=== PATIENT | female | born 1960 | race Caucasian/White ===

== ENCOUNTER → 2017-06-06 | Outpatient (CLI) | payer OTHER ==
--- NOTE | 2017-06-06 09:49 | P.HPOB ---
History of Present Illness H&P Date: 06/06/17 Chief Complaint: The patient is here for her routine gynecologic exam and mammogram. This is a 57-year-old G2 to P1011 within LMP of 2005. Patient states she continues to have hot flashes. They seem to have gotten worse over the last 6 months. She states she notices them more during the day compared to the past. Her hot flashes used to be mostly at night. She denies any postmenopausal bleeding and denies any other gynecologic problems. Review of Systems Her weight has been stable. She denies respiratory, cardiac or G.I. problems. Past Medical History Past Medical History: Hypertension Additional Past Medical History / Comment(s): kidney stones. She also has hiatal hernia, overactive bladder, osteopenia and history of a aortic aneurysm status post graft repair. History of Any Multi-Drug Resistant Organisms: None Reported Additional Past Surgical History / Comment(s): aaa repair 01/29/14, kidney stone surgery, colonoscopy in 2014. Past Psychological History: No Psychological Hx Reported Smoking Status: Current every day smoker (She admits to smoking about a half a pack of cigarettes per day.) Past Alcohol Use History: None Reported, Rare Past Drug Use History: None Reported - Past Family History Father Family Medical History: Diabetes Mellitus Additional Family Medical History / Comment(s): Father had heart disease and diabetes. Her sister also had diabetes. Mother had an aortic aneurysm and a cousin had a brain aneurysm. Medications and Allergies Home Medications and Allergies Comment(s): The patient states her current medications on 06/06/2017 are atenolol 50 mg daily and omeprazole 40 mg daily. Home Medications Medication Instructions Recorded Confirmed Type Atenolol [Tenormin] 1 tab PO HS 04/16/14 04/16/14 History Famotidine [Pepcid] 40 mg PO HS #10 tab 04/16/14 Rx HYDROcodone/APAP 7.5-325MG [[place] 1 tab PO BID PRN 04/16/14 04/16/14 History 7.5-325] Ondansetron HCl [Zofran] 4 mg PO Q8HR #15 tab 04/16/14 Rx Zolpidem [Ambien] 1 tab PO HS PRN 04/16/14 04/16/14 History Allergies Allergy/AdvReac Type Severity Reaction Status Date / Time amoxicillin [Amoxicillin] Allergy Unknown Verified 04/16/14 10:02 latex Allergy Itching Verified 04/16/14 10:02 Exam - Vital Signs Vital signs: Blood pressure 162/92 height 5'3" weight 180 pounds hundred 97.6 pulse 65. This is a well-developed well-nourished white female who is alert and oriented times 3 in no acute distress. HEENT: Within normal limits. NECK: Supple without mass or thyromegaly. CHEST AND LUNGS: Clear to auscultation. HEART: Regular rate and rhythm. BREASTS: Are without mass or discharge. AXILLARY EXAM: Negative for adenopathy. BACK: Negative for CVA tenderness. ABDOMEN: Soft, nontender, without palpable masses. PELVIC EXAM: Normal external genitalia with mild atrophy. Cervix and vagina appear normal with mild atrophy. There is no unusual discharge. There is no evidence of prolapse. The uterus is midposition, nongravid size and nontender. There are no palpable adnexal masses or tenderness. RECTAL EXAM: recto vaginal exam is negative for mass or tenderness and is negative for occult blood. EXTREMITIES: Nontender. IMPRESSION: 1. 57-year-old menopausal female with normal gynecologic exam. 2. History of chronic hypertension with elevated blood pressure today. 3. History of osteopenia. PLAN: 1. Pap smear was deferred since she had a normal one last year. 2. Self breast examination was discussed. 3. Mammogram will be done today. 4. We've discussed her blood pressure elevation. I have recommended that she follow-up with Dr. Shay as soon as possible. I've also recommended that she do home blood pressure checks since she does have a blood pressure cuff. I have stressed the importance of having good blood pressure control especially because of her history of the aortic aneurysm. She states she will follow-up with Dr. Shay. 5. Osteoporosis prevention was discussed. Will plan on repeating bone density testing next year. 6. She will return in one year.
--- NOTE | 2017-06-07 09:19 | MM ---
Reason for exam: screening (asymptomatic). Last mammogram was performed 1 year and 1 month ago. History: Patient is postmenopausal and had first child at age 37. Taking estrogen for 1 year beginning at age 44. Taking progesterone for 1 year beginning at age 44. Physical Findings: A clinical breast exam by your physician is recommended on an annual basis and results should be correlated with mammographic findings. MG Screening Mammo w CAD Bilateral CC and MLO view(s) were taken. Prior study comparison: May 10, 2016, bilateral MG screening mammo w CAD. July 10, 2013, [facility] DIGITAL BILATERAL MAMMOGRAM w/CAD. The breast tissue is heterogeneously dense. This may lower the sensitivity of mammography. No suspicious abnormality. No significant changes when compared with prior studies. ASSESSMENT: Negative, BI-RAD 1 RECOMMENDATION: Routine screening mammogram of both breasts in 1 year.
== END | disposition home or self-care (01) ==
LOC: WWCWWP 08:33
PROVIDERS: ATTEND Obstetrics & Gynecology
DX: Z12.31 Encounter for screening mammogram for malignant neoplasm of breast (principal)

== ENCOUNTER → 2019-02-18 | Outpatient (CLI) | payer OTHER ==
--- NOTE | 2019-02-18 08:31 | MR ---
EXAMINATION TYPE: MR angio head wo con DATE OF EXAM: 02/18/2019 COMPARISON: Outside brain MRI March 20, 2018. HISTORY: Previous abnormal MRI, face spasm TECHNIQUE: Time of flight images focusing on the [place] of [place] were performed without contrast.. 2-D and 3-D postprocessing imaging is performed. FINDINGS: Slight tortuous course to distal right vertebral artery is seen. There is codominant verteb ral basilar system. Vertebral arteries are patent to basilar junction. There is small caliber but pat ent right posterior me indicating artery. There is patent left posterior commuting artery. There is n o significant focal stenosis or aneurysmal change in posterior circulation. Images of the anterior circulation show tortuous course to distal internal carotid arteries bilateral ly. There is no significant focal stenosis or aneurysmal change in the anterior circulation. There is small caliber but patent anterior communicating artery identified. IMPRESSION: No aneurysmal change at the level of the [place].
--- NOTE | 2019-02-18 08:46 | CTL ---
EXAMINATION TYPE: CT Low Dose Lung DATE OF EXAM ORDERED: 02/18/2019 HISTORY: Long-term tobacco use. Lung cancer screening CT DLP: [address] CTDI: 2.34 mGy Automated exposure control for dose reduction was used. SCREENING VISIT: Second study COMPARISON: Low-dose lung screening CT May 24, 2016 TECHNIQUE: Low dose computed tomography scan was performed through the chest at 1 mm thick sections a nd reconstructed images in the coronal plane at [address] DIAGNOSTIC QUALITY: Limited, but interpretable FINDINGS: LUNG NODULES: Present, detailed below: Current exam shows improved nodular detection due to post process MIP imaging. A stable calcified 3 mm nodule or granuloma right midlung anteriorly axial image 174. Immediately inf erior and lateral to this there is stable 2 mm probable calcified nodule or granuloma axial image 177 . There is 3 x 2 mm lateral right upper lobe nodule axial image 80 likely stable from prior. There is 4 x 3 mm lateral left upper lobe nodule axial image 72 felt stable from prior study axial im age 69. LUNGS: COPD: Severity: Mild to moderate Fibrosis: Severity: None Lymph nodes: No new greater than 1 cm Other findings: None BILATERAL PLEURAL SPACE: Effusion: None Calcification: None Thickening: None Pneumothorax: None HEART: Heart Size: Normal Coronary calcification: Mild to moderate three-vessel coronary artery calcification redemonstrated Pericardial effusion: None OTHER FINDINGS: Upper abdomen: Small hiatal hernia is redemonstrated. Bony thorax: None. Supraclavicular region: None Other: None IMPRESSION: Scattered small nodules are stable. FOLLOW UP CT CHEST RECOMMENDATION: Annual low-dose lung screening CT CT LUNG RAD: Lung-Rad 2 Benign Appearance or Behavior
--- NOTE | 2019-02-18 10:09 | MR ---
EXAMINATION TYPE: MR brain and iac wo/w con DATE OF EXAM: 02/18/2019 COMPARISON: Prior brain MRI 03/20/2018 HISTORY: Previous abnormal MRI, face spasm TECHNIQUE: Multiplanar, multisequence images of the brain and brainstem is performed without and with IV contras t, utilizing 8 mL intravenous Gadavist . Small aphyg-wv-ooxm high-resolution images obtained through the internal auditory canals. FINDINGS: Diffusion weighted images demonstrate no evidence of a recent infarct or other diffusion ab normality. There is no extra-axial fluid collection or significant interval change white matter sign al abnormality, diffuse scattered hyperintensities are present in the juxtacortical, subcortical, per icallosal and periventricular white matter similar to prior exam as well as in the krys to the right midline, there are greater than 50 lesions, essentially stable accounting for differences in techniqu e. The ventricular system and cisternal spaces are normal in size and appearance. The brain volume is age appropriate. Midline structures demonstrate normal morphology. The craniocervical junction appears within normal limits. Post contrast images demonstrate no abnormal enhancement. Internal auditory canals are symme tric and unremarkable The dural venous sinuses appear patent. The visualized sinuses are clear and th e globes are intact. IMPRESSION: Stable white matter demyelination. No abnormal enhancement.
== END | disposition home or self-care (01) ==
LOC: RADMRIMAIN 07:04
PROVIDERS: ATTEND Psychiatry & Neurology Neurology
DX: Z12.2 Encounter for screening for malignant neoplasm of respiratory organs (principal); R91.8 Other nonspecific abnormal finding of lung field; G37.9 Demyelinating disease of central nervous system, unspecified; I67.1 Cerebral aneurysm, nonruptured
CPT/HCPCS: 70544; 70553; G0297; A9585

== ENCOUNTER → 2019-04-01 | Outpatient (CLI) | payer OTHER ==
[2019-04-01 08:02] VITALS: BP 173/84; PULSE 72; RESP 16; TEMP 97.8; BMI 32.5
--- NOTE | 2019-04-01 09:46 | WWHP ---
[facility] - HISTORY AND PHYSICAL DATE OF SERVICE: 04/01/2019 CHIEF COMPLAINT: The patient is here for her routine gynecologic exam and mammogram. HPI: This is a 59-year-old, G2, P-1-0-1-1 with an LMP of 2006. The patient is without gynecologic complaints and denies any postmenopausal bleeding. PAST MEDICAL HISTORY: Chronic hypertension, kidney stones, hiatal hernia, overactive bladder, osteopenia, and history of aortic aneurysm, status post graft repair. MEDICATIONS: Include an antihypertensive, cholesterol medication, medication for gastric reflux. Please see medications listed in [employer] for details and doses. ALLERGIES: To AMOXICILLIN, which caused hives. PAST SURGICAL HISTORY: Aortic aneurysm graft repair in 2013, lithotripsy for kidney stones 2013 and colonoscopy 2014. 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 SOCIAL HISTORY: She smokes approximately 1/2 a pack of cigarettes per day and has about 3 alcohol- containing drinks per month. She denies drug use. She has been since 1995. FAMILY HISTORY: Father had heart disease and diabetes. Sister also has diabetes. Mother had an aortic aneurysm and a cousin had a brain aneurysm. REVIEW OF SYSTEMS: She has gained 4 pounds over the past 2 years. She denies respiratory, cardiac or GI problems. PHYSICAL EXAM: Blood pressure 173/84, height 5 feet 3 inches, weight 184 pounds, BMI 33. Temperature 97.8, pulse 72, pulse oximeter 94%. This is a well-developed, well-nourished, white female, who is alert and oriented x3, in no acute distress. HEENT: Within normal limits. NECK: Supple without mass or thyromegaly. CHEST AND LUNGS: Clear to auscultation. HEART: Regular rate and rhythm. Breasts are without mass or discharge. AXILLARY: Exam is negative for adenopathy. BACK: Negative for CVA tenderness. ABDOMEN: Soft, nontender, without palpable masses. PELVIC: Exam external genitalia reveals mild atrophy without lesions. Cervix and vagina reveals mild atrophy without lesions. There is no evidence of prolapse. The uterus is mid position, nongravid size and nontender. There are no palpable adnexal masses or tenderness. Rectovaginal exam is negative for mass or tenderness and is negative for occult blood. EXTREMITIES: Nontender. IMPRESSION: 1. A 59-year-old menopausal female with normal gynecologic exam. 2. History of osteopenia. 3. Elevated blood pressure with history of chronic hypertension. PLAN: 1. Pap smear was performed. 2. Self breast awareness was discussed with the patient. 3. Screening mammogram will be done today. 4. Osteoporosis prevention was discussed. Bone density testing will be done today. 5. We have discussed her elevated blood pressure. I have recommended that she check her own blood pressures at home. She will follow up with Dr. Shay for elevated blood pressures. 6. She is to return in one year for her annual well-woman exam. MMODL / IJN: [id number] /
--- NOTE | 2019-04-01 18:43 | BD ---
EXAMINATION TYPE: Axial Bone Density DATE OF EXAM: 04/01/2019 COMPARISON: NONE CLINICAL HISTORY: 59-year-old female postmenopausal screening without HRT Height: 63 Weight: 182.1 FRAX RISK QUESTIONS: Alcohol (3 or more units per day): no Family History (Parent hip fracture): yes mother Glucocorticoids (More than 3mos): no (Ex: prednisone, prednisolone, methylprednisolone, dexamethasone, and hydrocortisone). History of Fracture in Adulthood: no Secondary Osteoporosis: 1. Type 1 Diabetes: no 2. Hyperthyroidism: no 3. Menopause before 45: no 4. Malnutrition: no 5. Chronic liver disease: no Rheumatoid Arthritis: no Current Tobacco Use: yes RISK FACTORS HISTORY OF: Family History of Osteoporosis: yes Active: yes Diet low in dairy products/other sources of calcium: yes Postmenopausal woman: age 46 Lost more than 2 inches in height since high school: no MEDICATIONS: bp meds, acid reflux med, cholesterol med Additional History: EXAM MEASUREMENTS: Bone mineral densitometry was performed using the [employer]ool System. Bone mineral density as measured about the Lumbar spine is: ----- L1-L4(G/cm2): 0.978 T Score Values are as follows: ----- L2: -1.6 ----- L3: -1.4 ----- L4: -1.9 ----- L1-L4: -1.7 Bone mineral density has: decreased -1.5 % since study of: 05.10.2016 Bone mineral density about the R hip (g/cm2): 0.902 Bone mineral density about the L hip (g/cm2): 0.841 T Score values are as follows: -----R Neck: -1.0 -----L Neck: -1.4 -----R Total: -0.8 -----L Total: -1.1 Bone mineral density has: decreased -2.2 % since study of: 05.10.2016 IMPRESSION: Osteopenia (T Score between -2.5 and -1). There is slightly increased risk of fracture and the patient may be considered for treatment. Re-Screen 2-5 years. NOTE: T-SCORE=SD OF THE YOUNG ADULT MEAN.
--- NOTE | 2019-04-02 13:36 | MM ---
Reason for exam: screening (asymptomatic). Last mammogram was performed 1 year and 10 months ago. History: Patient is postmenopausal and had first child at age 37. Taking estrogen for 1 year beginning at age 44. Taking progesterone for 1 year beginning at age 44. Physical Findings: A clinical breast exam by your physician is recommended on an annual basis and results should be correlated with mammographic findings. MG Screening Mammo w CAD Bilateral CC and MLO view(s) were taken. Prior study comparison: June 06, 2017, bilateral MG screening mammo w CAD. May 10, 2016, bilateral MG screening mammo w CAD. The breast tissue is heterogeneously dense. This may lower the sensitivity of mammography. There are benign appearing round, dystrophic calcifications bilaterally. There is chronic nodularity bilaterally. There is no discrete abnormality. ASSESSMENT: Benign, BI-RAD 2 RECOMMENDATION: Routine screening mammogram of both breasts in 1 year.
== END | disposition home or self-care (01) ==
LOC: WWCWWP 07:44
PROVIDERS: ATTEND Obstetrics & Gynecology
DX: Z12.31 Encounter for screening mammogram for malignant neoplasm of breast (principal); M85.851 Other specified disorders of bone density and structure, right thigh; M85.852 Other specified disorders of bone density and structure, left thigh; M85.88 Other specified disorders of bone density and structure, other site
CPT/HCPCS: 77067; 77080

== ENCOUNTER 2019-05-19 09:43 | Inpatient (IN) | payer OTHER ==
[2019-05-19] MEDS ORDERED: ASPIRIN 81 MG PO STA (10:03)
[2019-05-19] MEDS ORDERED: NITROGLYCERIN OINT 1 INCH/GM PACKET TOPICAL STA (10:03)
--- NOTE | 2019-05-19 10:06 | ED ---
General Adult HPI - General Chief complaint: Chest Pain Stated complaint: palpitations, sweating Time Seen by Provider: 05/19/19 09:55 Source: patient, RN notes reviewed Mode of arrival: ambulatory Limitations: no limitations - History of Present Illness Initial comments: Patient is a pleasant 59-year-old female presenting to the emergency Department with complaints of chest discomfort. Onset of symptoms was prior to arrival at work. Discomfort was moderate and now resolved. Discomfort feels like pressure with some radiation towards the left arm. Patient had associated diaphoresis. 2 days ago patient had similar symptoms however was more severe at that point. Patient did not sleep well throughout the night. Other than this no history of similar symptoms previously. No leg pain or leg swelling. Patient states she has been belching. - Related Data Home Medications Medication Instructions Recorded Confirmed Zolpidem [Ambien] 1 tab PO HS PRN 04/16/14 05/19/19 Aspirin 81 mg PO DAILY PRN 04/01/19 05/19/19 Atenolol [Tenormin] 50 mg PO DAILY 04/01/19 05/19/19 Linaclotide [Linzess] 290 mcg PO DIRECTED 04/01/19 05/19/19 Omeprazole 40 mg PO DAILY 04/01/19 05/19/19 Polyethylene Glycol 3350 [Miralax] 17 gm PO DAILY PRN 04/01/19 05/19/19 Rosuvastatin [Crestor] 20 mg PO DAILY 04/01/19 05/19/19 Docusate [Colace] 100 mg PO DAILY PRN 05/19/19 05/19/19 Phentermine HCl [Adipex-P] 37.5 mg PO DAILY 05/19/19 05/19/19 Allergies Allergy/AdvReac Type Severity Reaction Status Date / Time amoxicillin [Amoxicillin] Allergy Unknown Verified 05/19/19 10:03 latex Allergy Itching Verified 05/19/19 10:03 Review of Systems ROS Statement: Those systems with pertinent positive or pertinent negative responses have been documented in the HPI. ROS Other: All systems not noted in ROS Statement are negative. Constitutional: Denies: fever Eyes: Denies: eye pain ENT: Denies: ear pain Respiratory: Denies: cough, dyspnea Cardiovascular: Reports: as per HPI, chest pain Endocrine: Denies: fatigue Gastrointestinal: Denies: abdominal pain, nausea Genitourinary: Denies: dysuria Musculoskeletal: Denies: back pain Skin: Denies: rash Neurological: Denies: weakness Past Medical History Past Medical History: Hypertension Additional Past Medical History / Comment(s): kidney stones. She also has hiatal hernia, overactive bladder, osteopenia and history of a aortic aneurysm status post graft repair. History of Any Multi-Drug Resistant Organisms: None Reported Additional Past Surgical History / Comment(s): aaa repair 01/29/14, kidney stone surgery, colonoscopy in 2014. Past Psychological History: No Psychological Hx Reported Smoking Status: Current every day smoker Past Alcohol Use History: None Reported, Rare Past Drug Use History: None Reported - Past Family History Father Family Medical History: Diabetes Mellitus Additional Family Medical History / Comment(s): Father had heart disease and diabetes. Her sister also had diabetes. Mother had an aortic aneurysm and a cousin had a brain aneurysm. General Exam Limitations: no limitations General appearance: alert, in no apparent distress Head exam: Present: atraumatic Eye exam: Present: normal appearance, PERRL ENT exam: Present: normal oropharynx Neck exam: Present: normal inspection Respiratory exam: Present: normal lung sounds bilaterally. Absent: chest wall tenderness Cardiovascular Exam: Present: regular rate, normal rhythm Expanded Peripheral pulses: 2+: Radial (R), Radial (L), Posterior Tibialis (R), Posterior Tibialis (L) GI/Abdominal exam: Present: soft. Absent: tenderness Extremities exam: Present: normal inspection. 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 Vazquez and EKG was faxed. 05/19/19 10:18 Dr. Vazquez is present and evaluating patient in the emergency department. 05/19/19 10:22 STEMI alert has been called. Dr. Shay has been paged for admission. 05/19/19 10:27 Case was discussed with Dr. Shay, who will admit his patient. EKG Findings - EKG Comments: EKG Findings:: Normal sinus rhythm 83. OK 156. QRS 86. QT 356. QTC 418. Left axis. LVH criteria. Borderline ST elevation leads V1 through V6. Medical Decision Making - Lab Data Result diagrams: 05/19/19 09:51 Lab Results 05/19/19 Range/Units 09:51 WBC 11.0 H (3.8-10.6) k/uL RBC 5.01 (3.80-5.40) m/uL Hgb 16.1 H (11.4-16.0) gm/dL Hct 47.0 H (34.0-46.0) % MCV 93.7 (80.0-100.0) fL MCH 32.0 (25.0-35.0) pg MCHC 34.2 (31.0-37.0) g/dL RDW 13.4 (11.5-15.5) % Plt Count 243 (150-450) k/uL Neutrophils % 61 % Lymphocytes % 29 % Monocytes % 5 % Eosinophils % 2 % Basophils % 1 % Neutrophils # 6.7 (1.3-7.7) k/uL Lymphocytes # 3.2 (1.0-4.8) k/uL Monocytes # 0.5 (0-1.0) k/uL Eosinophils # 0.2 (0-0.7) k/uL Basophils # 0.2 (0-0.2) k/uL - Radiology Data Interpreted by me: Chest x-ray shows no acute process Critical Care Time Critical Care Time: Yes Total Critical Care Time: 31 Disposition Clinical Impression: ST elevation myocardial infarction (STEMI) Disposition: ADMITTED IP TO THIS [facility] Condition: Serious Is patient prescribed a controlled substance at d/c from ED?: No Referrals: Randell Shay MD [Primary Care Provider] - 1-2 days
[2019-05-19] MEDS ORDERED: ATORVASTATIN 80 MG TAB PO STA (10:22)
[2019-05-19] MEDS ORDERED: NITROGLYCERIN SL TABS 0.4 MG TAB SUBLINGUAL PRN ×2 (10:22→11:38)
[2019-05-19] MEDS ORDERED: HEPARIN SODIUM,PORCINE 5,000 UNIT/ML 1 ML VIAL IV STA (10:23)
[2019-05-19] MEDS ORDERED: HEPARIN SODIUM,PORCINE 5,000 UNIT/ML 1 ML VIAL IV ONE (10:23)
[2019-05-19 10:26] LABS: Basophils # (A) 0.2 k/uL (0-0.2); Basophils % (A) 1 %; Eosinophils # (A) 0.2 k/uL (0-0.7); Eosinophils % (A) 2 %; HGB 16.1 gm/dL (11.4-16.0); Lymphocytes # (A) 3.2 k/uL (1.0-4.8); Lymphocytes % (A) 29 %; MCHC 34.2 g/dL (31.0-37.0); MCV 93.7 fL (80.0-100.0); Mean Platelet Volume 7.5; Monocytes # (A) 0.5 k/uL (0-1.0); Monocytes % (A) 5 %; Neutrophils # (A) 6.7 k/uL (1.3-7.7); Neutrophils % (A) 61 %; Platelet Count 243 k/uL (150-450); RBC 5.01 m/uL (3.80-5.40); RDW 13.4 % (11.5-15.5)
--- NOTE | 2019-05-19 10:28 | XR ---
EXAMINATION TYPE: XR chest 2V DATE OF EXAM: 05/19/2019 COMPARISON: Low-dose lung screening CT February 18, 2019 HISTORY: Chest pain and pressure today. TECHNIQUE: Frontal and lateral views of the chest are obtained. FINDINGS: Background mild chronic underlying emphysematous change is present. Overlying EKG leads are seen. There is no focal air space opacity, pleural effusion, or pneumothorax seen. The cardiac silhouette size is within normal limits with atherosclerotic change in aortic knob. The os seous structures are intact. IMPRESSION: Chronic emphysematous change without acute pulmonary process.
[2019-05-19] MEDS ORDERED: fentaNYL (PF) 50 MCG/ML 2 ML AMP ONE (10:36)
[2019-05-19 10:38] LABS: Albumin 4.4 g/dL (3.5-5.0); Calcium 9.6 mg/dL (8.4-10.2); Magnesium 1.8 mg/dL (1.6-2.3); Potassium 4.5 mmol/L (3.5-5.1); Total Bilirubin 0.4 mg/dL (0.2-1.3); Total Protein 7.3 g/dL (6.3-8.2)
[2019-05-19] MEDS ORDERED: IV FLUID CONTINUATION 1,000 ML IV ONE (10:39)
[2019-05-19] MEDS ORDERED: LIDOCAINE 1% INJ 10MG/ML (20 ML MDV) SQ ONE (10:42)
[2019-05-19] MEDS ORDERED: fentaNYL (PF) 50 MCG/ML 2 ML AMP IV ONE (10:43)
[2019-05-19] MEDS: MIDAZOLAM (PF) 2 MG/2 ML VIAL IV ONE ×2 (10:44→10:46)
[2019-05-19] MEDS ORDERED: TICAGRELOR 90 MG TAB ONE (10:46)
[2019-05-19] MEDS ORDERED: TICAGRELOR 90 MG TAB PO ONE (10:47)
--- NOTE | 2019-05-19 10:52 | P.CRDCN ---
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 She presented to the emergency room this morning with symptoms of chest pressure and heaviness with associated diaphoresis and mild shortness of breath. According to the , patient had significant symptoms on Sunday, he attempted to encourage her to come to the emergency room at that time, she did take an aspirin on Sunday and on Sunday. Her initial EKG was reviewed by the ER physician, he was unsure whether or not her changes were significant, the EKG was then faxed to Dr. VC Vazquez on the cardiac unit who went directly to see the patient in the ER and called an overhead STEMI. The patient's home medications included Ambien 1 tablet at at bedtime when necessary, Crestor 20 mg daily, MiraLAX when necessary, Adipex, omeprazole 40 mg daily, linzess 290mcg as directed, Colace when necessary, Tenormin 50 mg daily, and when necessary baby aspirin. The EKG showed a normal sinus rhythm with ST elevation in the anterior lateral leads, lateral T wave inversion noted in 1 and aVL. Chest x-ray showed chronic emphysema change without acute pulmonary process. Blood pressure 148/80 with a heart rate in the 70s, 98% on 2 L of oxygen. White blood cell count 11.0, hemoglobin 16, platelet count 243. Sodium 136, potassium 4.5, BUN 13 and creatinine 0.9. Magnesium 1.8 blood glucose on arrival 124. Patient was advised to be taken directly to the cardiac catheterization lab, the risks and the benefits of the procedure were explained to the patient and her in detail, she had been given aspirin as well as Lipitor and 4000 units of heparin in the emergency room and was taken directly to the cardiac catheterization lab. Past Medical History Past Medical History: Hypertension Additional Past Medical History / Comment(s): kidney stones. She also has hiatal hernia, overactive bladder, osteopenia and history of a aortic aneurysm status post graft repair. History of Any Multi-Drug Resistant Organisms: None Reported Additional Past Surgical History / Comment(s): aaa repair 5/22/14, kidney stone surgery, colonoscopy in 2015. Past Psychological History: No Psychological Hx Reported Smoking Status: Current every day smoker Past Alcohol Use History: None Reported, Rare Past Drug Use History: None Reported - Past Family History Father Family Medical History: Diabetes Mellitus Additional Family Medical History / Comment(s): Father had heart disease and diabetes. Her sister also had diabetes. Mother had an aortic aneurysm and a cousin had a brain aneurysm. Medications and Allergies Home Medications Medication Instructions Recorded Confirmed Type Zolpidem [Ambien] 1 tab PO HS PRN 04/16/14 05/19/19 History Aspirin 81 mg PO DAILY PRN 04/01/19 05/19/19 History Atenolol [Tenormin] 50 mg PO DAILY 04/01/19 05/19/19 History Linaclotide [Linzess] 290 mcg PO DIRECTED 04/01/19 05/19/19 History Omeprazole 40 mg PO DAILY 04/01/19 05/19/19 History Polyethylene Glycol 3350 [Miralax] 17 gm PO DAILY PRN 04/01/19 05/19/19 History Rosuvastatin [Crestor] 20 mg PO DAILY 04/01/19 05/19/19 History Docusate [Colace] 100 mg PO DAILY PRN 05/19/19 05/19/19 History Phentermine HCl [Adipex-P] 37.5 mg PO DAILY 05/19/19 05/19/19 History Allergies Allergy/AdvReac Type Severity Reaction Status Date / Time amoxicillin [Amoxicillin] Allergy Unknown Verified 05/19/19 10:03 latex Allergy Itching Verified 05/19/19 10:03 Physical Exam Vitals: Vital Signs Temp Pulse Pulse Resp BP Pulse Ox 05/19/19 10:04 73 05/19/19 09:57 98.2 F 72 16 144/110 99 Intake and Output 05/18/19 05/19/19 05/19/19 22:59 06:59 14:59 Other: Weight 83.461 kg PHYSICAL EXAMINATION: GENERAL: 59-year-old female complaining of mild chest pressure at the time of our examination HEENT: Head is atraumatic, normocephalic. Pupils equal, round. Sclera anicteric. Conjunctiva are clear. Mucous membranes of the mouth are moist. Neck is supple. There is no elevated jugular venous pressure. No carotid bruit is heard. HEART EXAMINATION: Heart S1, S2 normal. No murmur or gallop heard. CHEST EXAMINATION: Lungs are clear to auscultation and precussion. No chest wall tenderness is noted on palpation or with deep breathing. ABDOMEN: Soft, nontender. Bowel sounds are heard. No organomegaly noted. EXTREMITIES: 1+ peripheral pulses with no evidence of peripheral edema and no calf tenderness noted. NEUROLOGIC patient is awake, alert and oriented 3 . . Results 05/19/19 09:51 05/19/19 09:51 Cardiac Enzymes 05/19/19 Range/Units 09:51 AST 32 (14-36) U/L CBC 05/19/19 Range/Units 09:51 WBC 11.0 H (3.8-10.6) k/uL RBC 5.01 (3.80-5.40) m/uL Hgb 16.1 H (11.4-16.0) gm/dL Hct 47.0 H (34.0-46.0) % Plt Count 243 (150-450) k/uL Comprehensive Metabolic Panel 05/19/19 Range/Units 09:51 Sodium 136 L (137-145) mmol/L Potassium 4.5 (3.5-5.1) mmol/L Chloride 102 (98-107) mmol/L Carbon Dioxide 23 (22-30) mmol/L BUN 13 (7-17) mg/dL Creatinine 0.91 (0.52-1.04) mg/dL Glucose 124 H (74-99) mg/dL Calcium 9.6 (8.4-10.2) mg/dL AST 32 (14-36) U/L ALT 34 (9-52) U/L Alkaline Phosphatase 93 (38-126) U/L Total Protein 7.3 (6.3-8.2) g/dL Albumin 4.4 (3.5-5.0) g/dL Current Medications Generic Name Dose Route Start Last Admin Trade Name Freq PRN Reason Stop Dose Admin Nitroglycerin 0.4 mg 05/19/19 10:22 05/19/19 10:23 Nitrostat SUBLINGUAL 0.4 mg ONCE PRN Administration Chest Pain Intake and Output 05/18/19 05/19/19 05/19/19 22:59 06:59 14:59 Other: Weight 83.461 kg Patient Weight 05/20/19 06:59 Weight 83.461 kg 05/19/19 09:51 05/19/19 09:51 EKG Interpretations (text) Initial EKG showed a normal sinus rhythm with anterior lateral ST elevation, lateral T wave inversion noted in 1 and aVL Assessment and Plan Plan: Assessment and plan #[address] elevation PR #2 hypertension #3 hyperlipidemia #4 nicotine dependence #5 history of abdominal aortic aneurysm with prior surgery in 2013 Plan Patient was given aspirin, Lipitor 80, 4000 units of IV heparin and taken directly to the cardiac catheterization lab, the risks and the benefits of the procedure explained to the patient in detail. Further recommendations will be based on these findings and the patient's clinical course. DNP note has been reviewed, I agree with a documented findings and plan of care. Patient was seen and examined.
[2019-05-19] MEDS ORDERED: BIVALIRUDIN BOLUS 250 MG/50 ML IV ONE (10:54)
[2019-05-19] MEDS ORDERED: BIVALIRUDIN 250 MG in SODIUM CHLORIDE 0.9% 50 ML IV ONE (10:54)
[2019-05-19] MEDS: NITROGLYCERIN 1000MCG/10ML SYRINGE INTRACORON ONE ×2 (11:03→11:12)
[2019-05-19] MEDS ORDERED: IOPAMIDOL-370 125ML BTL INJ ONE (11:04)
[2019-05-19 11:13] LABS: D-Dimer 0.91 mg/L FEU (<0.60); Partial Thromboplastin Time 25.5 sec (22.0-30.0); Prothrombin Time 10.3 sec (9.0-12.0)
--- NOTE | 2019-05-19 11:22 | CC ---
CARDIAC CATHETERIZATION REPORT Mrs Hall came with chest pain. EKG was suggestive of acute anterior wall myocardial infarction. The emergency room physician was initially was uncertain about the EKG findings. An EKG was subsequently faxed to me and we advised the patient to go to the [facility] directly. Patient has a history of hypertension and history of abdominal aortic aneurysm repair. No history of diabetes. PROCEDURE: The right groin was prepped and draped in the usual manner and the skin was infiltrated with 2% Xylocaine. The right femoral artery was entered using micropuncture needle and Seldinger technique, and subsequently a #6-Arabic sheath was placed in. Under fluoroscopic guidance, selective coronary angiography was then performed in multiple projections. Patient tolerated the procedure well. HEMODYNAMICS: Left ventricular end-diastolic pressure is 12 to 16 mmHg prior to angiography. Moderate sedation was used. The sedation time was 22 minutes. The left main coronary artery is normal and patent. LAD is totally occluded after a small size diagonal branch. After a few injections, there was a IVY 2 flow noted. Circumflex coronary artery is a good caliber blood vessel. It is tortuous. There is a probably small size first obtuse marginal branch is blocked. Subsequent OM branch has a 90% stenosis. The right coronary artery is tortuous and diffusely diseased and distal right coronary artery prior to the bifurcation has a 99% stenosis. FINAL IMPRESSION: This study shows total occlusion of the left anterior descending artery, it is possible flush occlusion of the small size obtuse marginal branch. There is a large size obtuse diagonal obtuse marginal branch which is a 90% stenosis. The right coronary artery has a 99% stenosis. RECOMMENDATIONS: Will proceed with a stent to the LAD. MMODL / IJN: [id number] /
[2019-05-19] MEDS ORDERED: ATROPINE SULFATE 0.1 MG/ML 10ML SYRINGE IV PRN (11:38)
[2019-05-19] MEDS ORDERED: ZOLPIDEM 5 MG TAB PO PRN (11:38)
[2019-05-19] MEDS ORDERED: RX INFO: IV CONTRAST WAS GIVEN 1 EACH MISC MISCELLANE PRN (11:38)
[2019-05-19] MEDS ORDERED: IOPAMIDOL-370 100ML BTL INJ ONE (11:40)
[2019-05-19] MEDS ORDERED: SODIUM CHLORIDE 0.9% 1,000 ML IV SCH (11:45)
[2019-05-19 12:06] LABS: Glucose,Whole Blood 118 mg/dL (75-99)
--- NOTE | 2019-05-19 12:23 | PTCA ---
PERCUTANEOUSTRANS CORORONARY ANGIOGRAPHY DATE OF SERVICE: 05/19/2019 PERFORMING PHYSICIAN: Toy Harper MD, Clinical Case Manager. PROCEDURE PERFORMED: 1. Aspiration thrombectomy from the left anterior descending artery. 2. Successful stenting of the of the mid left anterior descending artery using 2.75 x 15 and 2.5 x 8 mm Xience SKY with an excellent angiographic results and reduction of stenosis from 100% to 0%. INDICATION: This is a 59-year-old female patient who is a smoker, who presented to the hospital with chest discomfort and was found to be in acute anterior ST-elevation myocardial infarction. She underwent a heart catheterization by Dr. VC Vazquez and was found to have occluded LAD with severe disease involving the LCX and RCA. She was brought today to undergo an intervention of the LAD. The decision was made toward emergent percutaneous intervention on the LAD. APPROACH: Right common femoral artery. COMPLICATION: None. SEDATION: Moderate with sedation length of 31 minutes. Total balloon is 72 minutes. PROCEDURE DESCRIPTION: Please refer to diagnostic heart catheterization was performed by Dr. VC Vazquez earlier today. Anticoagulation was initiated using Angiomax. Subsequently I took JL4, JL3. Five, and the and the L left main was engaged. I did cross the acute total occlusion using a Whisper wire and did after that aspiration thrombectomy from the LAD before I did the did before I did balloon angioplasty using 2.5 x 12 mm balloon and then deployed 2.75 x 15 mm Xience SKY where the stent was positioned under fluoroscopy guidance and deployed under its nominal pressure. After that, the following angiogram showed possible edge dissection of the distal edge of the stent and because of that I decided to cover that with a stent so I deployed 2.5 x 8 mm Xience SKY where the stent was positioned under fluoroscopy guidance and deployed under its nominal pressure. The following angiogram showed good angiographic results and the procedure was completed without any complication. POSTPROCEDURE MANAGEMENT: 1. Dual anti-platelet therapy. 2. Risk factors modifications. 3. Follow up with the patient. MMODL / IJN: [id number] /
[2019-05-19] MEDS: ONDANSETRON 4 MG/2 ML VIAL IVP PRN ×2 (13:27→19:03)
[2019-05-19] MEDS ORDERED: MAGNESIUM SULFATE-D5W PMX 1 GM in DEXTROSE/WATER 1 100ML.BAG IVPB ONE (14:00)
[2019-05-19 14:26] VITALS: BMI 32.5
--- NOTE | 2019-05-19 14:34 | LTR ---
DATE OF SERVICE: 05/19/2019 RE: Lauren Hall Dear Dr. Shay: Ms. Lauren Hall presented to [facility] with chest discomfort and was diagnosed with ST-elevation myocardial infarction. She underwent an emergent heart catheterization by Dr. VC Vazquez and was found to have occluded LAD which I did perform successful balloon angioplasty and stenting. I want to thank you for allowing us to participate in her care and please do not hesitate to call if you have any question or concern. Sincerely, MD MERRITT Garcia / MENDYN: [id number] /
[2019-05-19] MEDS ORDERED: ACETAMINOPHEN TAB 325 MG TAB PO PRN (19:09)
[2019-05-19] MEDS ORDERED: ALPRAZolam 0.5 MG TAB PO PRN (19:09)
[2019-05-19] MEDS: METOCLOPRAMIDE 5 MG/ML 2 ML VIAL IVP PRN (19:56)
[2019-05-19] MEDS: METOPROLOL TARTRATE 12.5 MG TAB PO SCH (20:28)
[2019-05-19] MEDS: TICAGRELOR 90 MG TAB PO SCH (20:29)
[2019-05-20 04:41] LABS: Basophils % (A) 0 %; Eosinophils # (A) 0.2 k/uL (0-0.7); Eosinophils % (A) 2 %; HCT 40.5 % (34.0-46.0); HGB 13.5 gm/dL (11.4-16.0); Lymphocytes # (A) 2.5 k/uL (1.0-4.8); Lymphocytes % (A) 29 %; MCH 31.4 pg (25.0-35.0); MCHC 33.4 g/dL (31.0-37.0); MCV 94.1 fL (80.0-100.0); Mean Platelet Volume 7.8; Monocytes # (A) 0.6 k/uL (0-1.0); Monocytes % (A) 6 %; Neutrophils # (A) 5.4 k/uL (1.3-7.7); Neutrophils % (A) 61 %; Platelet Count 186 k/uL (150-450); RDW 13.4 % (11.5-15.5); WBC 8.9 k/uL (3.8-10.6)
[2019-05-20 04:54] LABS: African American GFR (CKD) >90 (>60 ml/min/1.73 sqM); Anion Gap 7 mmol/L; Blood Urea Nitrogen 10 mg/dL (7-17); Carbon Dioxide 25 mmol/L (22-30); Chloride 105 mmol/L (98-107); Glucose 100 mg/dL (74-99); Sodium 137 mmol/L (137-145)
[2019-05-20] MEDS: METOPROLOL TARTRATE 12.5 MG TAB PO SCH (08:06)
[2019-05-20] MEDS: ASPIRIN 81 MG PO SCH (08:06)
[2019-05-20] MEDS: TICAGRELOR 90 MG TAB PO SCH ×2 (08:07→20:30)
[2019-05-20] MEDS ORDERED: LISINOPRIL 2.5 MG TAB PO SCH (09:00)
--- NOTE | 2019-05-20 09:01 | ECHOF ---
Referral Reason:ACS MEASUREMENTS -------- HEIGHT: 160.0 cm WEIGHT: 83.5 kg BP: 149/81 IVSd: 1.1 cm (0.6 - 1.1) LVIDd: 2.7 cm (3.9 - 5.3) LVPWd: 1.1 cm (0.6 - 1.1) IVSs: 1.6 cm LVIDs: 2.3 cm LVPWs: 1.8 cm LA Diam: 3.0 cm (2.7 - 3.8) LAESV Index (A-L): 18.33 ml/m Ao Diam: 3.1 cm (2.0 - 3.7) MV EXCURSION: 13.644 mm (> 18.000) MV EF SLOPE: 57 mm/s (70 - 150) EPSS: 1.5 cm MV E Blaine: 0.41 m/s MV DecT: 365 ms MV A Blaine: 0.85 m/s MV E/A Ratio: 0.48 RAP: 5.00 mmHg RVSP: 17.61 mmHg FINDINGS -------- Sinus rhythm. This was a technically difficult study with suboptimal parasternal views. The left ventricular size is normal. There is borderline concentric left ventricular hypertrophy. Overall left ventricular systolic function is moderately impaired with, an EF between 35 - 40 %. A pical anterior LV wall motion is hypokinetic. Apical lateral LV wall motion is hypokinetic. Api mando inferior LV wall motion is hypokinetic. Apical septum LV wall motion is hypokinetic. The right ventricle is normal in size. Normal LA size by volume 22+/-6 ml/m2. The right atrium is normal in size. Interatrial and interventricular septum intact. The aortic valve was not well visualized. Mild mitral annular calcification present. Mild tricuspid regurgitation present. Right ventricular systolic pressure is normal at < 35 mmHg. The pulmonic valve was not well visualized. The aortic root size is normal. Normal inferior vena cava with normal inspiratory collapse consistent with estimated right atrial pre ssure of 5 mmHg. There is no pericardial effusion. CONCLUSIONS -------- 1. Sinus rhythm. 2. This was a technically difficult study with suboptimal parasternal views. 3. The left ventricular size is normal. 4. There is borderline concentric left ventricular hypertrophy. 5. Overall left ventricular systolic function is moderately impaired with, an EF between 35 - 40 %. 6. Apical anterior LV wall motion is hypokinetic. 7. Apical lateral LV wall motion is hypokinetic. 8. Apical inferior LV wall motion is hypokinetic. 9. Apical septum LV wall motion is hypokinetic. 10. The right ventricle is normal in size. 11. Normal LA size by volume 22+/-6 ml/m2. 12. The right atrium is normal in size. 13. Interatrial and interventricular septum intact. 14. The aortic valve was not well visualized. 15. Mild mitral annular calcification present. 16. Mild tricuspid regurgitation present. 17. Right ventricular systolic pressure is normal at < 35 mmHg. 18. The pulmonic valve was not well visualized. 19. The aortic root size is normal. 20. Normal inferior vena cava with normal inspiratory collapse consistent with estimated right atrial pressure of 5 mmHg. 21. There is no pericardial effusion. PROVISIONING SPECIALIST: Cecilia Vallejo RDCS
--- NOTE | 2019-05-20 13:49 | P.HPIM ---
History of Present Illness H&P Date: 05/20/19 Chief Complaint: Chest pain with diaphoresis This is a history of physical 59-year-old white female with history of long-term smoking who 4 days ago started having substernal chest pressure associated diaphoresis. No overt shortness of breath to later in the event. The pain started becoming more exertional and nonexertional. The patient had significant diaphoresis and was evaluated in the emergency room showed ST elevation myocardial infraction. Cardiac catheterization was done which had stent to the left anterior descending artery and she is now seen postoperatively and feeling much better. We had a long discussion regarding tobacco cessation. Review of Systems Constitutional: Denies chills, Denies fever Eyes: denies blurred vision, denies pain Ears, nose, mouth and throat: Denies headache, Denies sore throat Cardiovascular: Reports as per HPI Respiratory: Denies cough Genitourinary: Denies dysuria, Denies hematuria Musculoskeletal: Denies myalgias Past Medical History Past Medical History: Hypertension Additional Past Medical History / Comment(s): kidney stones. She also has hiatal hernia, overactive bladder, osteopenia and history of a aortic aneurysm status post graft repair. History of Any Multi-Drug Resistant Organisms: None Reported Additional Past Surgical History / Comment(s): aaa repair 01/29/14, kidney stone surgery, colonoscopy in 2014. Past Anesthesia/Blood Transfusion Reactions: No Reported Reaction, Family History of Problems w/ Anesthesia Additional Past Anesthesia/Blood Transfusion Reaction / Comment(s): "Mom, even if she had a small procedure she would vomit after anesthesia, she would get very sick to her stomach" Past Psychological History: No Psychological Hx Reported Smoking Status: Current every day smoker Past Alcohol Use History: None Reported, Rare Past Drug Use History: None Reported - Past Family History Father Family Medical History: Diabetes Mellitus Additional Family Medical History / Comment(s): Father had heart disease and diabetes. Her sister also had diabetes. Mother had an aortic aneurysm and a cousin had a brain aneurysm. Sister(s) Family Medical History: Diabetes Mellitus Mother Additional Family Medical History / Comment(s): AAA Medications and Allergies Home Medications Medication Instructions Recorded Confirmed Type Zolpidem [Ambien] 1 tab PO HS PRN 04/16/14 05/19/19 History Aspirin 81 mg PO DAILY PRN 04/01/19 05/19/19 History Atenolol [Tenormin] 50 mg PO DAILY 04/01/19 05/19/19 History Linaclotide [Linzess] 290 mcg PO DIRECTED 04/01/19 05/19/19 History Omeprazole 40 mg PO DAILY 04/01/19 05/19/19 History Polyethylene Glycol 3350 [Miralax] 17 gm PO DAILY PRN 04/01/19 05/19/19 History Rosuvastatin [Crestor] 20 mg PO DAILY 04/01/19 05/19/19 History Docusate [Colace] 100 mg PO DAILY PRN 05/19/19 05/19/19 History Phentermine HCl [Adipex-P] 37.5 mg PO DAILY 05/19/19 05/19/19 History Allergies Allergy/AdvReac Type Severity Reaction Status Date / Time amoxicillin [Amoxicillin] Allergy Rash/Hives Verified 05/19/19 13:11 latex Allergy Rash/Hives Verified 05/19/19 13:11 Physical Exam Vitals: Vital Signs Temp Pulse Resp BP Pulse Ox 05/20/19 12:00 98.1 F 71 11 L 126/57 94 L 05/20/19 11:00 67 19 116/68 93 L 05/20/19 10:00 77 21 96/74 94 L 05/20/19 09:00 80 16 121/68 94 L 05/20/19 08:00 98.5 F 75 20 135/76 92 L 05/20/19 07:00 67 20 132/72 93 L 05/20/19 06:00 72 16 134/67 94 L 05/20/19 05:00 69 18 129/77 94 L 05/20/19 04:00 98.2 F 68 14 119/65 93 L 05/20/19 03:00 65 14 140/78 94 L 05/20/19 02:00 70 18 127/79 94 L 05/20/19 01:00 60 13 115/67 93 L 05/20/19 00:00 98 F 67 10 L 133/74 94 L 05/19/19 23:03 65 21 133/74 94 L 05/19/19 23:00 70 20 126/78 95 05/19/19 22:00 66 15 120/74 93 L 05/19/19 21:00 63 14 133/76 94 L 05/19/19 20:15 71 35 H 133/76 95 05/19/19 20:00 98.5 F 67 17 153/86 95 05/19/19 19:45 69 24 153/86 93 L 05/19/19 19:31 81 17 154/84 95 05/19/19 19:16 62 9 L 154/84 92 L 05/19/19 19:01 75 19 128/84 92 L 05/19/19 18:45 66 10 L 147/85 95 05/19/19 18:30 71 28 H 119/77 93 L 05/19/19 18:00 70 16 120/77 93 L 05/19/19 17:30 66 18 113/84 93 L 05/19/19 17:00 67 10 L 130/92 96 05/19/19 16:45 64 19 127/82 96 05/19/19 16:30 64 15 109/66 97 05/19/19 16:15 63 18 114/69 97 05/19/19 16:00 98.7 F 59 L 13 107/65 98 05/19/19 15:45 56 L 18 105/66 95 05/19/19 15:30 61 11 L 103/63 95 05/19/19 15:15 61 18 116/72 94 L 05/19/19 15:00 64 6 L 115/69 94 L 05/19/19 14:45 67 6 L 117/90 96 05/19/19 14:30 69 12 103/75 97 05/19/19 14:15 65 16 109/69 95 05/19/19 14:00 68 15 93/58 95 Intake and Output 05/19/19 05/20/19 05/20/19 22:59 06:59 14:59 Intake Total 900 800 Output Total 0 Balance 900 800 Intake: Intake, IV Titration 300 Amount Sodium Chloride 0.9% 1, 300 000 ml @ 75 mls/hr IV . [id number] [facility] Rx#:[id number] Oral 600 800 Output: Urine 0 Other: # Voids 0 1 0 Weight 87.7 kg - Constitutional General appearance: no acute distress - EENT Eyes: EOMI - Neck Neck: no lymphadenopathy - Respiratory Respiratory: bilateral: CTA - Cardiovascular Rhythm: regular Heart sounds: normal: S1, S2 Abnormal Heart Sounds: no S3 Gallop - Gastrointestinal General gastrointestinal: soft, no tenderness - Neurologic Neurologic: CNII-XII intact - Musculoskeletal Musculoskeletal: strength equal bilaterally - Psychiatric Psychiatric: A&O x's 3, appropriate affect, intact judgment & insight Results CBC & Chem 7: 05/20/19 04:22 05/20/19 04:22 Labs: Abnormal Lab Results - Last 24 Hours (Table) 05/20/19 Range/Units 04:22 Creatinine 0.50 L (0.52-1.04) mg/dL Glucose 100 H (74-99) mg/dL Thrombosis Risk Factor Assmnt - Choose All That Apply Each Factor Represents 1 point: Obesity (BMI >25), Varicose veins Each Risk Factor Represents 2 Points: Age 61-74 years Thrombosis Risk Factor Assessment Total Risk Factor Score: 4 Thrombosis Risk Factor Assessment Level: Moderate Risk Assessment and Plan (1) Tobacco abuse Current Visit: Yes Status: Acute Code(s): Z72.0 - TOBACCO USE SNOMED Code(s): 114994375 (2) Hypertension Current Visit: Yes Status: Acute Code(s): I10 - ESSENTIAL (PRIMARY) HYPERTENSION SNOMED Code(s): 67368876 (3) ST elevation myocardial infarction (STEMI) Current Visit: Yes Status: Acute Code(s): I21.3 - ST ELEVATION (STEMI) MYOCARDIAL INFARCTION OF [facility] SITE SNOMED Code(s): 06800173 Plan: Continue current regimen or treatment. I had a long discussion with cardiology about her overall prognosis and care. Anticipate further treatment with coronary stent to the RCA. Reconcile medications if as necessary. See orders otherwise. Prognosis is guarded. Time with Patient: Greater than 30
[2019-05-20] MEDS: MAG HYDROX/AL HYDROX/SIMETH 30 ML CUP PO PRN ×2 (14:27→19:12)
[2019-05-20] MEDS: METOPROLOL TARTRATE 25 MG TAB PO SCH (20:29)
[2019-05-20] MEDS ORDERED: ATORVASTATIN 80 MG TAB PO SCH (21:00)
--- NOTE | 2019-05-20 21:10 | PN ---
PROGRESS NOTE This patient was admitted with acute anterior wall myocardial infarction. The patient underwent stent to the LAD. Patient has a diffuse coronary artery disease with a 90% stenosis in the obtuse marginal branch as well as the right coronary artery. The patient remained stable. Right groin is normal. There is no evidence of any hematoma. No dysrhythmias are noted. Blood pressure is 110/63 mmHg. Heart rate is 75 per minute. First and second heart sounds are normal. Lungs are clear to auscultation and percussion. PLAN: We will continue the current medications. We will discuss with Dr. Harper regarding the further stenting of the obtuse marginal branch and the right coronary artery. MMODL / IJN: [id number] /
[2019-05-21 05:11] LABS: Basophils # (A) 0.1 k/uL (0-0.2); Basophils % (A) 1 %; Eosinophils # (A) 0.3 k/uL (0-0.7); Eosinophils % (A) 3 %; HCT 44.2 % (34.0-46.0); HGB 14.4 gm/dL (11.4-16.0); Lymphocytes % (A) 37 %; MCH 30.9 pg (25.0-35.0); MCHC 32.5 g/dL (31.0-37.0); MCV 95.1 fL (80.0-100.0); Mean Platelet Volume 7.7; Monocytes # (A) 0.5 k/uL (0-1.0); Monocytes % (A) 6 %; Neutrophils # (A) 4.1 k/uL (1.3-7.7); Neutrophils % (A) 52 %; Platelet Count 198 k/uL (150-450); RBC 4.65 m/uL (3.80-5.40); RDW 13.5 % (11.5-15.5)
[2019-05-21 05:22] LABS: African American GFR (CKD) >90 (>60 ml/min/1.73 sqM); Anion Gap 3 mmol/L; Blood Urea Nitrogen 10 mg/dL (7-17); Calcium 9.2 mg/dL (8.4-10.2); Carbon Dioxide 28 mmol/L (22-30); Chloride 104 mmol/L (98-107); Glucose 114 mg/dL (74-99); Potassium 4.8 mmol/L (3.5-5.1); Sodium 135 mmol/L (137-145)
[2019-05-21] MEDS: METOCLOPRAMIDE 5 MG/ML 2 ML VIAL IVP PRN (05:49)
[2019-05-21] MEDS ORDERED: LISINOPRIL 5 MG TAB PO SCH (09:00)
[2019-05-21] MEDS: ASPIRIN 81 MG PO SCH (09:12)
[2019-05-21] MEDS: TICAGRELOR 90 MG TAB PO SCH (09:12)
[2019-05-21] MEDS: METOPROLOL TARTRATE 25 MG TAB PO SCH (09:12)
--- NOTE | 2019-05-21 12:25 | PN ---
PROGRESS NOTE This patient is status post anterior wall myocardial infarction. Patient is doing fairly well. Denies any chest pain. Denies any shortness of breath. Echocardiogram reveals mild to moderately impaired left ventricular systolic function. Blood pressure is 143/78 mmHg, heart rate is 60 per minute, oxygen saturation is 94%. First and second heart sounds are normal. Lungs are clear to auscultation and percussion. Patient may undergo the stent to the obtuse marginal branch and right coronary today. MMODL / IJN: [id number] /
[2019-05-21] MEDS: MAG HYDROX/AL HYDROX/SIMETH 30 ML CUP PO PRN (13:11)
[2019-05-21 16:08] VITALS: BP 128/78; PULSE 61; RESP 27; TEMP 98.2
--- NOTE | 2019-05-21 18:34 | P.DS ---
Providers Date of admission: 05/19/19 10:24 Attending physician: Randell Shay Consults: 05/19/19 10:24 Consult Physician Stat Consulting Provider: Roselia Vazquez Consult Reason/Comments: stemi Do you want consulting provider notified?: Already Contacted 05/19/19 11:38 Consult Physician Routine Consulting Provider: [facility] Consult Reason/Comments: Post Interventional patient Do you want consulting provider notified?: Already Contacted Primary care physician: Randell Shay - Discharge Diagnosis(es) (1) Tobacco abuse Status: Acute (2) Hypertension Status: Acute (3) ST elevation myocardial infarction (STEMI) Status: Acute Hospital Course: This is a discharge summary 50s 9-year-old white female sounds admitted for ST elevation myocardial infarction. The patient had a critical stenosis of the left anterior descending coronary artery and had stent placed by cardiology. The patient is now stable for discharge but she has have an 80% stenotic lesion on the right circumflex artery which will she she will have fixed in 2 days. The patient is stable for discharge tolerating diet with no significant chest pain. Again, we had a long discussion regarding tobacco cessation. Patient Condition at Discharge: Serious Plan - Discharge Summary Discharge Rx Participant: Yes New Discharge Prescriptions: New Ticagrelor [Brilinta] 90 mg PO BID #30 tab Atorvastatin [Lipitor] 80 mg PO HS #30 tab Metoprolol Tartrate [Lopressor] 25 mg PO BID #60 tab Nitroglycerin Sl Tabs [Nitrostat] 0.4 mg SUBLINGUAL ONCE PRN #50 tab PRN Reason: Chest Pain Acetaminophen Tab [Tylenol] 650 mg PO Q6HR PRN tab PRN Reason: Fever and/ or MILD Pain Lisinopril [Zestril] 5 mg PO DAILY #30 tab Continue Aspirin 81 mg PO DAILY PRN PRN Reason: Pain Atenolol [Tenormin] 50 mg PO DAILY Discontinued Rosuvastatin [Crestor] 20 mg PO DAILY No Action Zolpidem [Ambien] 1 tab PO HS PRN PRN Reason: sleep Omeprazole 40 mg PO DAILY Linaclotide [Linzess] 290 mcg PO DIRECTED Polyethylene Glycol 3350 [Miralax] 17 gm PO DAILY PRN PRN Reason: Constipation Phentermine HCl [Adipex-P] 37.5 mg PO DAILY Docusate [Colace] 100 mg PO DAILY PRN PRN Reason: Constipation Discharge Medication List Zolpidem [Ambien] 1 tab PO HS PRN 04/16/14 [History] Aspirin 81 mg PO DAILY PRN 04/01/19 [History] Atenolol [Tenormin] 50 mg PO DAILY 04/01/19 [History] Linaclotide [Linzess] 290 mcg PO DIRECTED 04/01/19 [History] Omeprazole 40 mg PO DAILY 04/01/19 [History] Polyethylene Glycol 3350 [Miralax] 17 gm PO DAILY PRN 04/01/19 [History] Docusate [Colace] 100 mg PO DAILY PRN 05/19/19 [History] Phentermine HCl [Adipex-P] 37.5 mg PO DAILY 05/19/19 [History] Acetaminophen Tab [Tylenol] 650 mg PO Q6HR PRN tab 05/21/19 [Rx] Atorvastatin [Lipitor] 80 mg PO HS #30 tab 05/21/19 [Rx] Lisinopril [Zestril] 5 mg PO DAILY #30 tab 05/21/19 [Rx] Metoprolol Tartrate [Lopressor] 25 mg PO BID #60 tab 05/21/19 [Rx] Nitroglycerin Sl Tabs [Nitrostat] 0.4 mg SUBLINGUAL ONCE PRN #50 tab 05/21/19 [Rx] Ticagrelor [Brilinta] 90 mg PO BID #30 tab 05/21/19 [Rx] Follow up Appointment(s)/Referral(s): Randell Shay MD [Primary Care Provider] - 1-2 days Patient Instructions/Handouts: Heart Attack (GEN), Heart Catheterization (GEN) Discharge Disposition: HOME SELF-CARE
== END 2019-05-21 18:04 | disposition home or self-care (01) | DRG 247 ==
LOC: EC 09:43 → 2SICU 10:24
PROVIDERS: ADMIT Family Medicine; ATTEND Family Medicine
PROC: 4A023N7 Measurement of Cardiac Sampling and Pressure, Left Heart, Percutaneous Approach (ICD-10-PCS; 2019-05-19)
PROC: B2111ZZ Fluoroscopy of Multiple Coronary Arteries using Low Osmolar Contrast (ICD-10-PCS; 2019-05-19)
PROC: 02C03ZZ Extirpation of Matter from Coronary Artery, One Artery, Percutaneous Approach (ICD-10-PCS; principal; 2019-05-19 10:32)
PROC: 027034Z Dilation of Coronary Artery, One Artery with Drug-eluting Intraluminal Device, Percutaneous Approach (ICD-10-PCS; 2019-05-19 10:32)
DX: I21.09 ST elevation (STEMI) myocardial infarction involving other coronary artery of anterior wall (principal); E78.5 Hyperlipidemia, unspecified; F17.210 Nicotine dependence, cigarettes, uncomplicated; I10 Essential (primary) hypertension; I25.10 Atherosclerotic heart disease of native coronary artery without angina pectoris; J43.9 Emphysema, unspecified; M85.80 Other specified disorders of bone density and structure, unspecified site; N32.81 Overactive bladder; Z79.82 Long term (current) use of aspirin; Z79.899 Other long term (current) drug therapy; Z82.49 Family history of ischemic heart disease and other diseases of the circulatory system; Z83.3 Family history of diabetes mellitus; Z86.79 Personal history of other diseases of the circulatory system; Z87.442 Personal history of urinary calculi; K59.00 Constipation, unspecified; Z88.0 Allergy status to penicillin; Z91.040 Latex allergy status
CPT/HCPCS: 36415; 71046; 80048; 80053; 83735; 84484; 85025; 85379; 85610; 85730; 93005; 93306; 93458; 96372; 96374; 96375; 99291; C1874

== ENCOUNTER 2019-05-27 07:38 | Day surgery (SDC) | payer OTHER ==
[~2019-05-27 07:38] MED LIST: ALPRAZolam 0.25 MG TAB PO PRN; ALPRAZolam 0.5 MG TAB PO PRN; ASPIRIN 325 MG TAB PO ONE; ATORVASTATIN 80 MG TAB PO ONE; NITROGLYCERIN SL TABS 0.4 MG TAB SUBLINGUAL PRN; SODIUM CHLORIDE 0.9% 1,000 ML in EMPTY BAG 1 BAG IV ONE
[2019-05-27] MEDS ORDERED: LIDOCAINE 1% INJ 10MG/ML (20 ML MDV) ONE (08:24)
[2019-05-27] MEDS ORDERED: fentaNYL (PF) 50 MCG/ML 2 ML AMP IVP ONE (08:45)
[2019-05-27] MEDS ORDERED: MIDAZOLAM (PF) 2 MG/2 ML VIAL IVP ONE (08:45)
[2019-05-27] MEDS ORDERED: LIDOCAINE 1% INJ 10MG/ML (20 ML MDV) SQ ONE (08:46)
[2019-05-27] MEDS ORDERED: fentaNYL (PF) 50 MCG/ML 2 ML AMP ONE (08:46)
[2019-05-27] MEDS ORDERED: BIVALIRUDIN BOLUS 250 MG/50 ML IV ONE (08:50)
[2019-05-27] MEDS ORDERED: BIVALIRUDIN 250 MG in SODIUM CHLORIDE 0.9% 50 ML IV ONE (08:54)
[2019-05-27] MEDS ORDERED: NITROGLYCERIN 1000MCG/10ML SYRINGE INTRACORON ONE ×2 (08:57→09:04)
[2019-05-27] MEDS ORDERED: DOCUSATE 100 MG CAP PO PRN (09:19)
[2019-05-27] MEDS ORDERED: NITROGLYCERIN SL TABS 0.4 MG TAB SUBLINGUAL PRN ×2 (09:19→09:20)
[2019-05-27] MEDS ORDERED: ASPIRIN 81 MG PO PRN (09:19)
[2019-05-27] MEDS ORDERED: ZOLPIDEM 10 MG TAB PO PRN (09:19)
[2019-05-27] MEDS ORDERED: POLYETHYLENE GLYCOL 3350 17 GM POWD.PACK PO PRN (09:19)
[2019-05-27] MEDS ORDERED: ACETAMINOPHEN TAB 325 MG TAB PO PRN (09:19)
[2019-05-27] MEDS ORDERED: RX INFO: IV CONTRAST WAS GIVEN 1 EACH MISC MISCELLANE PRN (09:20)
[2019-05-27] MEDS ORDERED: ZOLPIDEM 5 MG TAB PO PRN (09:20)
[2019-05-27] MEDS ORDERED: ATROPINE SULFATE 0.1 MG/ML 10ML SYRINGE IV PRN (09:20)
[2019-05-27] MEDS ORDERED: MAG HYDROX/AL HYDROX/SIMETH 30 ML CUP PO PRN (09:20)
[2019-05-27] MEDS ORDERED: IOPAMIDOL-370 125ML BTL INJ ONE (09:23)
[2019-05-27] MEDS ORDERED: SODIUM CHLORIDE 0.9% 1,000 ML IV SCH (09:30)
--- NOTE | 2019-05-27 09:44 | P.PCN ---
Date of Procedure: 05/27/19 Operative Findings: CARDIAC CATHETERIZATION AND PERCUTANEOUS CORONARY INTERVENTION PERFORMING PHYSICIAN: Toy Harper MD, RPVI PROCEDURE PERFORMED: 1. Selective right and left coronary angiogram 2. Left heart catheterization 3. Successful stenting of the mid RCA using 3.0 x 12 mm Xience SKY with an excellent angiographic results and reduction of stenosis from 99% to 0% INDICATION: This is a pleasant 69-year-old female patient with history of smoking as well as hypertension and dyslipidemia who presented to the hospital a few weeks ago with acute anterior ST patient myocardial infarction and at that point she was seen by Dr. VC Vazquez who performed an emergent heart catheterization which revealed occluded LAD as well as severe disease involving the left circumflex and critical disease involving the RCA. At that point the patient underwent successful angioplasty and stenting of the LAD with a good angiographic results. The left circumflex and RCA were treated medically and the patient was discharged in stable medical condition. She continues to have chest discomfort and she was brought today to undergo a heart catheterization and PCI of the RCA and LCx. COMPLICATION: None APPROACH: Right common femoral artery LEVEL OF SEDATION: Moderate with a sedation 31 minutes PROCEDURE DESCRIPTION: After obtaining an informed consent, the patient was brought to cardiac lab technologist. Local anesthesia was performed using lidocaine subcutaneously. The right common femoral artery was cannulated using Seldinger technique, the guidewire passed easily, following that we advanced a 6 Kiswahili sheath dilator assembly, the wire and dilator were removed and sheath was flushed. I did selective right coronary angiogram using XB right guide and selective left coronary angiogram using a JL4 catheter. Following that we did left heart catheterization using 6-Kiswahili pigtail catheter. The procedure was completed there was no complication. SELECTIVE CORONARY ANGIOGRAM: The right coronary artery: Is a large caliber vessel, a tortuous vessel, and a dominant vessel. The ostial RCA has intermediate lesion. The proximal RCA has mild diffuse disease. The mid RCA has critical lesion appears to be in the range of 90-95%. The RCA distally is diffusely disease in the yjyr-lo-vavoyvwt range and bifurcates into PDA and PLV branches and both appeared to be angiographically normal. Left main: Has mild disease only. Bifurcates into LCx and LAD. The left circumflex: Is a medium to large caliber vessel and nondominant vessel. The mid LCx has severe lesion appeared to be in the range of 80%. The left anterior descending artery: The proximal LAD is a stented and the stent is patent. The mid and distal LAD appears to have mild diffuse disease. HEMODYNAMICS: The LVEDP was 6 mmHg without significant gradient across aortic valve. PCI OF THE RCA: Anticoagulation was initiated using Angiomax. Subsequently I did engage the RCA using XB right guide. I did wire it using a run-through wire. I did balloon angioplasty using 30 by 12 mm balloon were the balloon was inflated under 14 justus for 20 seconds before I deployed 30 by 12 mm Xience SKY where the stent was positioned under fluoroscopy guidance and deployed under 14 justus for 20 seconds. The following angiogram showed good angiographic results without any complication and without any edge dissection with IVY-3 flow in the RCA. I was going to pursue with an intervention on the left circumflex but the patient did develop about 5 cm hematoma around the sheath in the right groin. Because of that I had to stop the anticoagulation with Angiomax and into the procedure. She will be brought to undergo a PCI of the LCx in the next 4-6 weeks. CONCLUSION: #1 patent stent in the proximal left anterior descending artery. There is mild to moderate diffuse disease in the mid LAD distal to the stent. #2 severe disease involving the mid LCx. #3 critical disease involving the mid RCA #4 successful stenting of the mid RCA using 3.0 x 12 mm Xience SKY with an excellent angiographic results and reduction of stenosis from 95% to 0% POSTPROCEDURE MANAGEMENT: #1 dual antiplatelet therapy #2 smoking cessation #3 risk factors modification #4 PCI of the LCx
[2019-05-27 16:29] VITALS: BMI 32.1
[2019-05-27] MEDS: TICAGRELOR 90 MG TAB PO SCH (20:01)
[2019-05-27] MEDS: METOPROLOL TARTRATE 25 MG TAB PO SCH (20:01)
[2019-05-27 21:44] VITALS: RESP 18
[2019-05-28 06:20] LABS: Basophils # (A) 0.1 k/uL (0-0.2); Basophils % (A) 1 %; Eosinophils # (A) 0.3 k/uL (0-0.7); Eosinophils % (A) 5 %; HCT 38.1 % (34.0-46.0); HGB 13.2 gm/dL (11.4-16.0); Lymphocytes % (A) 30 %; MCH 32.2 pg (25.0-35.0); MCHC 34.5 g/dL (31.0-37.0); MCV 93.4 fL (80.0-100.0); Mean Platelet Volume 8.1; Monocytes # (A) 0.5 k/uL (0-1.0); Monocytes % (A) 7 %; Neutrophils # (A) 3.7 k/uL (1.3-7.7); Neutrophils % (A) 55 %; Platelet Count 194 k/uL (150-450); RBC 4.09 m/uL (3.80-5.40); RDW 13.2 % (11.5-15.5); WBC 6.8 k/uL (3.8-10.6)
[2019-05-28 06:31] LABS: African American GFR (CKD) >90 (>60 ml/min/1.73 sqM); Anion Gap 7 mmol/L; Blood Urea Nitrogen 12 mg/dL (7-17); Carbon Dioxide 26 mmol/L (22-30); Chloride 106 mmol/L (98-107); Glucose 118 mg/dL (74-99); Potassium 4.4 mmol/L (3.5-5.1); Sodium 139 mmol/L (137-145)
[2019-05-28] MEDS ORDERED: PANTOPRAZOLE 40 MG TABLET PO SCH (07:30)
[2019-05-28] MEDS ORDERED: Linaclotide [Linzess] PO SCH (09:00)
[2019-05-28] MEDS ORDERED: ASPIRIN 81 MG PO SCH (09:00)
[2019-05-28] MEDS ORDERED: LISINOPRIL 5 MG TAB PO SCH (09:00)
[2019-05-28] MEDS: METOPROLOL TARTRATE 25 MG TAB PO SCH (09:13)
[2019-05-28] MEDS: TICAGRELOR 90 MG TAB PO SCH (09:13)
--- NOTE | 2019-05-28 09:34 | P.DS ---
Providers Date of admission: May 272018 Attending physician: Toy Harper Consults: 05/27/19 09:20 Consult Physician Routine Consulting Provider: [facility] Consult Reason/Comments: Post Interventional patient Do you want consulting provider notified?: Already Contacted Primary care physician: Randell Shay [place] Hospital Course: This is a pleasant 59-year-old female patient who presented to the hospital a few weeks ago with acute anterior ST elevation myocardial infarction and underwent successful stenting of the LAD. At that point she was found to have critical disease involving the RCA and LCx. She was admitted to the hospital yesterday and underwent successful stenting of the RCA with a good angiographic results and without any complication. On follow-up with her today, she is asymptomatic from a cardiovascular standpoint overview. The right groin is bruised but no discrete hematoma. The patient is going to be discharged home on dual antiplatelet therapy and I'll follow-up with the patient next week in the office Plan - Discharge Summary Discharge Rx Participant: Yes New Discharge Prescriptions: New Aspirin 81 mg PO DAILY #30 chewable Continue Zolpidem [Ambien] 10 mg PO HS PRN PRN Reason: sleep Omeprazole 40 mg PO DAILY Linaclotide [Linzess] 290 mcg PO DIRECTED Polyethylene Glycol 3350 [Miralax] 17 gm PO DAILY PRN PRN Reason: Constipation Docusate [Colace] 100 mg PO DAILY PRN PRN Reason: Constipation Ticagrelor [Brilinta] 90 mg PO BID #30 tab Atorvastatin [Lipitor] 80 mg PO HS #30 tab Metoprolol Tartrate [Lopressor] 25 mg PO BID #60 tab Nitroglycerin Sl Tabs [Nitrostat] 0.4 mg SUBLINGUAL ONCE PRN #50 tab PRN Reason: Chest Pain Acetaminophen Tab [Tylenol] 650 mg PO Q6HR PRN tab PRN Reason: Fever and/ or MILD Pain Lisinopril [Zestril] 5 mg PO DAILY #30 tab Discontinued Aspirin 81 mg PO DAILY Discharge Medication List Zolpidem [Ambien] 10 mg PO HS PRN 04/16/14 [History] Linaclotide [Linzess] 290 mcg PO DIRECTED 04/01/19 [History] Omeprazole 40 mg PO DAILY 04/01/19 [History] Polyethylene Glycol 3350 [Miralax] 17 gm PO DAILY PRN 04/01/19 [History] Docusate [Colace] 100 mg PO DAILY PRN 05/19/19 [History] Acetaminophen Tab [Tylenol] 650 mg PO Q6HR PRN tab 05/21/19 [Rx] Atorvastatin [Lipitor] 80 mg PO HS #30 tab 05/21/19 [Rx] Lisinopril [Zestril] 5 mg PO DAILY #30 tab 05/21/19 [Rx] Metoprolol Tartrate [Lopressor] 25 mg PO BID #60 tab 05/21/19 [Rx] Nitroglycerin Sl Tabs [Nitrostat] 0.4 mg SUBLINGUAL ONCE PRN #50 tab 05/21/19 [Rx] Ticagrelor [Brilinta] 90 mg PO BID #30 tab 05/21/19 [Rx] Aspirin 81 mg PO DAILY #30 chewable 05/28/19 [Rx] Follow up Appointment(s)/Referral(s): Toy Harper MD [STAFF PHYSICIAN] - 06/05/19 9:30 am () Patient Instructions/Handouts: *[facility] - After Heart Catheterization - 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 Vazquez no longer accepting new patients, patient will be referred to Dr. Harper.
[2019-05-28 10:22] VITALS: BP 121/58; PULSE 68; TEMP 97.7
[2019-05-28] MEDS ORDERED: ATORVASTATIN 80 MG TAB PO SCH (21:00)
== END 2019-05-28 09:54 | disposition home or self-care (01) ==
LOC: CATHCVL 07:38 → 3SCARD 09:14 → CATHCVL 05-28 09:54
PROVIDERS: ATTEND Internal Medicine Interventional Cardiology
DX: I25.110 Atherosclerotic heart disease of native coronary artery with unstable angina pectoris (principal); I10 Essential (primary) hypertension; F17.200 Nicotine dependence, unspecified, uncomplicated; I77.1 Stricture of artery; I25.2 Old myocardial infarction; Z95.5 Presence of coronary angioplasty implant and graft; E78.5 Hyperlipidemia, unspecified; E78.00 Pure hypercholesterolemia, unspecified; K44.9 Diaphragmatic hernia without obstruction or gangrene; Z87.442 Personal history of urinary calculi; N32.81 Overactive bladder; Z86.79 Personal history of other diseases of the circulatory system; Z83.3 Family history of diabetes mellitus; Z82.49 Family history of ischemic heart disease and other diseases of the circulatory system; Z84.89 Family history of other specified conditions; Z79.899 Other long term (current) drug therapy; Z88.0 Allergy status to penicillin; Z91.040 Latex allergy status
CPT/HCPCS: 93458; 80048; 85025; C9600; C1887; C1725; C1769 ×3; C1894; C1874; J2001; J3010; J0583; Q9967; J2250

== ENCOUNTER 2019-06-19 06:12 | Day surgery (SDC) | payer OTHER ==
[2019-06-16 10:59] VITALS: BMI 32.5
[~2019-06-19 06:12] MED LIST changes: -ASPIRIN 325 MG TAB PO ONE; +ASPIRIN 325 MG TAB PO STA; -ATORVASTATIN 80 MG TAB PO ONE; +ATORVASTATIN 80 MG TAB PO STA
[2019-06-19] MEDS ORDERED: MIDAZOLAM PF (FBP) 2 MG/2 ML VIAL IV ONE (07:50)
[2019-06-19] MEDS ORDERED: LIDOCAINE 1% INJ 10MG/ML (20 ML MDV) SQ ONE (07:51)
[2019-06-19] MEDS ORDERED: BIVALIRUDIN BOLUS 250 MG/50 ML IV ONE (07:55)
[2019-06-19] MEDS ORDERED: BIVALIRUDIN 250 MG in SODIUM CHLORIDE 0.9% 50 ML IV ONE (07:56)
[2019-06-19] MEDS ORDERED: NITROGLYCERIN 1000MCG/10ML SYRINGE INTRACORON ONE (08:00)
[2019-06-19] MEDS ORDERED: ZOLPIDEM 10 MG TAB PO PRN (08:13)
[2019-06-19] MEDS ORDERED: ACETAMINOPHEN TAB 325 MG TAB PO PRN (08:13)
[2019-06-19] MEDS ORDERED: POLYETHYLENE GLYCOL 3350 17 GM POWD.PACK PO PRN (08:13)
[2019-06-19] MEDS ORDERED: NITROGLYCERIN SL TABS 0.4 MG TAB SUBLINGUAL PRN ×2 (08:13→08:14)
[2019-06-19] MEDS ORDERED: DOCUSATE 100 MG CAP PO PRN (08:13)
[2019-06-19] MEDS ORDERED: RX INFO: IV CONTRAST WAS GIVEN 1 EACH MISC MISCELLANE PRN (08:14)
[2019-06-19] MEDS ORDERED: ZOLPIDEM 5 MG TAB PO PRN (08:14)
[2019-06-19] MEDS ORDERED: MAG HYDROX/AL HYDROX/SIMETH 30 ML CUP PO PRN (08:14)
[2019-06-19] MEDS ORDERED: ATROPINE SULFATE 0.1 MG/ML 10ML SYRINGE IV PRN (08:14)
[2019-06-19] MEDS ORDERED: SODIUM CHLORIDE 0.9% 1,000 ML IV SCH (08:15)
[2019-06-19] MEDS ORDERED: IOPAMIDOL-370 125ML BTL INJ ONE (08:27)
--- NOTE | 2019-06-19 08:55 | LTR ---
June 19, 2019 Re: Lauren LozanoRafael Dear Dr. Shay: Ms. Lauren Hall underwent successful angioplasty and stenting of the left circumflex. Thank you for allowing me to participate in her care and please do not hesitate to call if you have any questions or concerns. Sincerely, MD MERRITT Garcia / SIDNEY: [id number] /
--- NOTE | 2019-06-19 09:14 | PTCA ---
PERCUTANEOUSTRANS CORORONARY ANGIOGRAPHY DATE OF SERVICE: 06/19/2019 PERFORMING PHYSICIAN: Toy Harper MD, Water Quality Specialist. PROCEDURE PERFORMED: Successful stenting of the mid left circumflex coronary artery using 2.0 x 12 mm Elliott drug-eluting stent with an excellent angiographic results and reduction of stenosis from 80% to 0%. INDICATION: This is a 59-year-old female patient with history of coronary artery disease and prior stenting of the LAD and RCA and known severe disease involving the left circumflex coronary artery as well as history of smoking, who was brought today to undergo a PCI of the left circumflex. APPROACH: Right common femoral artery. COMPLICATION: None. LEVEL OF SEDATION: Moderate with sedation length of 20 minutes. PROCEDURE DESCRIPTION: After obtaining an informed consent, the patient was brought to the cardiac supervisor labor gang. The right common femoral artery was cannulated using micropuncture technique, the micropuncture wire passed easily then I placed a 6-Luxembourgish sheath. I did after that start anticoagulation with Angiomax. Subsequently, I did engage the left main using JL4 guide. I did wire the left circumflex using a whisper wire. I did balloon angioplasty using 2.5 x 12 mm balloon before I deployed 2.0 x 12 mm Elliott drug-eluting stent where the stent was positioned under fluoroscopy guidance and deployed under 16 atmospheres for 20 seconds with the following angiogram showing excellent angiographic results. The procedure was completed without any complication. POSTPROCEDURE MANAGEMENT: 1. Dual anti-platelet therapy. 2. Risk factors modifications. 3. Follow up with the patient. MMODL / IJN: [id number] /
[2019-06-19] MEDS ORDERED: ONDANSETRON 4 MG/2 ML VIAL IVP STA (09:30)
[2019-06-19] MEDS ORDERED: ONDANSETRON 4 MG/2 ML VIAL ONE (09:31)
[2019-06-19 20:08] VITALS: RESP 16
[2019-06-19] MEDS: METOPROLOL TARTRATE 25 MG TAB PO SCH (20:12)
[2019-06-19] MEDS: TICAGRELOR 90 MG TAB PO SCH (20:13)
[2019-06-19] MEDS ORDERED: ATORVASTATIN 80 MG TAB PO SCH (21:00)
[2019-06-20 07:19] LABS: Basophils # (A) 0.1 k/uL (0-0.2); Basophils % (A) 1 %; Eosinophils # (A) 0.8 k/uL (0-0.7); Eosinophils % (A) 9 %; HGB 13.8 gm/dL (11.4-16.0); Lymphocytes # (A) 2.4 k/uL (1.0-4.8); Lymphocytes % (A) 29 %; MCH 32.2 pg (25.0-35.0); MCHC 33.7 g/dL (31.0-37.0); MCV 95.7 fL (80.0-100.0); Mean Platelet Volume 7.4; Monocytes # (A) 0.5 k/uL (0-1.0); Monocytes % (A) 6 %; Neutrophils # (A) 4.3 k/uL (1.3-7.7); Neutrophils % (A) 53 %; Platelet Count 206 k/uL (150-450); RBC 4.29 m/uL (3.80-5.40); RDW 13.2 % (11.5-15.5); WBC 8.1 k/uL (3.8-10.6)
[2019-06-20] MEDS ORDERED: PANTOPRAZOLE 40 MG TABLET PO SCH (07:30)
[2019-06-20 07:31] LABS: African American GFR (CKD) >90 (>60 ml/min/1.73 sqM); Anion Gap 6 mmol/L; Blood Urea Nitrogen 10 mg/dL (7-17); Carbon Dioxide 27 mmol/L (22-30); Chloride 106 mmol/L (98-107); Glucose 131 mg/dL (74-99); Potassium 4.3 mmol/L (3.5-5.1); Sodium 139 mmol/L (137-145)
--- NOTE | 2019-06-20 08:02 | P.CONS ---
History of Present Illness - Chief Complaint Status post stent - History of Present Illness This is a consultation on a 51-year-old white female essentially admitted for stent placement. The patient is now seen postoperatively #1 doing quite well. Mild chest pressure on the right substernal area was noted yesterday but the patient is ambulating properly without any difficulty voiding. Appetite is floyd nal. We had a long discussion regarding tobacco cessation. Review of Systems Constitutional: Denies chills, Denies fever Eyes: denies blurred vision, denies pain Ears, nose, mouth and throat: Denies headache, Denies sore throat Cardiovascular: Denies chest pain, Denies shortness of breath Respiratory: Denies cough Gastrointestinal: Denies abdominal pain, Denies diarrhea, Denies nausea, Denies vomiting Genitourinary: Denies dysuria, Denies hematuria Past Medical History Past Medical History: Hyperlipidemia, Hypertension, Myocardial Infarction (ND) Additional Past Medical History / Comment(s): kidney stones. She also has hiatal hernia, overactive bladder, osteopenia and history of a aortic aneurysm status post graft repair. Last Myocardial Infarction Date:: 05/19/19 History of Any Multi-Drug Resistant Organisms: None Reported Past Surgical History: Heart Catheterization With Stent Additional Past Surgical History / Comment(s): aaa repair 01/29/14, kidney stone surgery, colonoscopy in 2014, 2 heart stents 05/19/19 1 heart stent 05/27/19 Past Anesthesia/Blood Transfusion Reactions: No Reported Reaction, Family History of Problems w/ Anesthesia Additional Past Anesthesia/Blood Transfusion Reaction / Comm: "Mom, even if she had a small procedure she would vomit after anesthesia, she would get very sick to her stomach" Date of Last Stent Placement:: 05/27/19 Past Psychological History: No Psychological Hx Reported Smoking Status: Current every day smoker Past Alcohol Use History: None Reported, Rare Additional Past Alcohol Use History / Comment(s): quit 05/19/19 Past Drug Use History: None Reported - Past Family History Father Family Medical History: Diabetes Mellitus Additional Family Medical History / Comment(s): Father had heart disease and d iabetes. Her sister also had diabetes. Mother had an aortic aneurysm and a cousin had a brain aneurysm. Sister(s) Family Medical History: Diabetes Mellitus Mother Additional Family Medical History / Comment(s): AAA Medications and Allergies Home Medications Medication Instructions Recorded Confirmed Type Zolpidem [Ambien] 10 mg PO HS PRN 04/16/14 06/19/19 History Linaclotide [Linzess] 290 mcg PO DIRECTED 04/01/19 06/19/19 History Omeprazole 40 mg PO DAILY 04/01/19 06/19/19 History Polyethylene Glycol 3350 [Miralax] 17 gm PO DAILY PRN 04/01/19 06/16/19 History Docusate [Colace] 100 mg PO DAILY PRN 05/19/19 06/16/19 History Acetaminophen Tab [Tylenol] 650 mg PO Q6HR PRN tab 05/21/19 06/16/19 Rx Lisinopril [Zestril] 5 mg PO DAILY #30 tab 05/21/19 06/19/19 Rx Metoprolol Tartrate [Lopressor] 25 mg PO BID #60 tab 05/21/19 06/19/19 Rx Nitroglycerin Sl Tabs [Nitrostat] 0.4 mg SUBLINGUAL ONCE PRN #50 tab 05/21/19 06/16/19 Rx Ticagrelor [Brilinta] 90 mg PO BID #30 tab 05/21/19 06/19/19 Rx Aspirin 81 mg PO DAILY #30 chewable 05/28/19 06/19/19 Rx Atorvastatin [Lipitor] 80 mg PO HS 06/16/19 06/19/19 History Allergies Allergy/AdvReac Type Severity Reaction Status Date / Time adhesive tape Allergy Rash/Hives Verified 06/16/19 10:53 amoxicillin [Amoxicillin] Allergy Rash/Hives Verified 06/16/19 10:53 latex Allergy Rash/Hives Verified 06/16/19 10:53 Physical Exam Vitals: Vital Signs Temp Pulse Pulse Resp BP Pulse Ox 06/20/19 04:00 98.0 F 71 16 128/64 94 L 06/19/19 23:05 74 16 111/64 93 L 06/19/19 20:06 98.3 F 85 16 126/64 95 06/19/19 15:32 64 18 166/92 96 06/19/19 15:07 72 06/19/19 14:45 72 186/81 06/19/19 13:45 64 169/72 06/19/19 12:45 62 170/71 06/19/19 12:15 58 L 130/79 06/19/19 11:45 58 L 129/59 06/19/19 11:30 61 137/81 06/19/19 11:15 57 L 06/19/19 11:00 97.4 F L 63 18 145/70 94 L 06/19/19 10:45 56 L 16 138/70 06/19/19 10:15 57 L 16 132/68 06/19/19 09:48 47 L 16 120/56 06/19/19 09:19 48 L 16 137/65 94 L 06/19/19 09:03 45 L 16 120/58 94 L 06/19/19 08:45 52 L 16 121/57 93 L 06/19/19 08:30 56 L 16 115/61 93 L Intake and Output 06/19/19 06/20/19 06/20/19 22:59 06:59 14:59 Other: # Voids 0 Weight 82.8 kg - Constitutional General appearance: no acute distress - EENT Eyes: EOMI - Neck Neck: no lymphadenopathy - Respiratory Respiratory: bilateral: CTA - Cardiovascular Rhythm: regular Heart sounds: normal: S1, S2 Abnormal Heart Sounds: no S3 Gallop - Gastrointestinal General gastrointestinal: soft, no tenderness - Musculoskeletal Musculoskeletal: gait normal - Psychiatric Psychiatric: A&O x's 3 Results CBC & Chem 7: 06/20/19 06:40 06/20/19 06:40 Labs: Abnormal Lab Results - Last 24 Hours (Table) 06/20/19 06/20/19 Range/Units 06:40 06:40 Eosinophils # 0.8 H (0-0.7) k/uL Glucose 131 H (74-99) mg/dL Assessment and Plan (1) Hypertension Current Visit: No Status: Acute Code(s): I10 - ESSENTIAL (PRIMARY) HYPERTENSION SNOMED Code(s): 40756931 (2) ST elevation myocardial infarction (STEMI) Current Visit: No Status: Acute Code(s): I21.3 - ST ELEVATION (STEMI) MYOCARDIAL INFARCTION OF [facility] SITE SNOMED Code(s): 64684572 (3) Tobacco abuse Current Visit: No Status: Acute Code(s): Z72.0 - TOBACCO USE SNOMED Code(s): 124132078 Plan: Status post coronary stent placement. We will anticipate discharge today. Reconcile home medications and add anticoagulation as appropriate per protocol. Follow-up with me in 7 days.
[2019-06-20] MEDS ORDERED: ASPIRIN 81 MG PO SCH (09:00)
[2019-06-20] MEDS ORDERED: NON FORMULARY DRUG (Linaclotide [Linzess] 290 MCG) PO SCH (09:00)
[2019-06-20] MEDS ORDERED: LISINOPRIL 5 MG TAB PO SCH (09:00)
[2019-06-20] MEDS: TICAGRELOR 90 MG TAB PO SCH (09:22)
[2019-06-20] MEDS: METOPROLOL TARTRATE 25 MG TAB PO SCH (09:22)
[2019-06-20 09:38] VITALS: BP 119/61; PULSE 76; TEMP 98.6
--- NOTE | 2019-06-20 11:08 | DS ---
DISCHARGE SUMMARY ADMISSION DATE: 06/19/2019 DISCHARGE DATE: 06/20/2019 BRIEF HISTORY: This is a pleasant 59-year-old female patient who was admitted to the hospital yesterday and underwent successful balloon angioplasty and stenting of the left circumflex with good angiographic results and without any complication, procedure was performed from the right groin. The right groin is soft and nontender and without any bruises. The patient is going to be discharged home on dual anti-platelet therapy and I will follow up with the patient next week in the office. MMANISAL / MENDYN: [id number] /
== END 2019-06-20 11:19 | disposition home or self-care (01) ==
LOC: CATHCVL 06:12 → 3SCARD 08:10 → CATHCVL 06-20 11:19
PROVIDERS: ATTEND Internal Medicine Interventional Cardiology
DX: I25.10 Atherosclerotic heart disease of native coronary artery without angina pectoris (principal); I10 Essential (primary) hypertension; F17.210 Nicotine dependence, cigarettes, uncomplicated; E78.5 Hyperlipidemia, unspecified; I25.2 Old myocardial infarction; Z95.5 Presence of coronary angioplasty implant and graft; Z95.828 Presence of other vascular implants and grafts; K44.9 Diaphragmatic hernia without obstruction or gangrene; N32.81 Overactive bladder; M85.80 Other specified disorders of bone density and structure, unspecified site; Z87.442 Personal history of urinary calculi; Z82.49 Family history of ischemic heart disease and other diseases of the circulatory system; Z83.3 Family history of diabetes mellitus; Z84.89 Family history of other specified conditions; Z79.02 Long term (current) use of antithrombotics/antiplatelets; Z79.82 Long term (current) use of aspirin; Z79.899 Other long term (current) drug therapy; Z88.0 Allergy status to penicillin; Z91.040 Latex allergy status; Z91.09 Other allergy status, other than to drugs and biological substances
CPT/HCPCS: 80048; 85025; C9600; C1769; C1887; C1874; J2405; J2001; J0583; Q9967; J2250

== ENCOUNTER → 2020-05-11 | Outpatient (CLI) | payer OTHER ==
[2020-05-11 11:39] VITALS: BP 148/86; PULSE 60; RESP 16; TEMP 98.3
--- NOTE | 2020-05-11 12:24 | P.HPOB ---
History of Present Illness H&P Date: 05/11/20 Chief Complaint: The patient is here for her routine gynecologic exam and ma mmogram. This is a 60-year-old 011 with an LMP of 2006. The patient is without gynecologic complaints and denies any postmenopausal bleeding. Review of Systems She has lost about 5 pounds over the past year. She denies respiratory or cardiac problems. GI: She has been having issues with her digestive tract including constipation alternating with loose stools. She sees Dr. Marcial for this. Past Medical History Past Medical History: Hyperlipidemia, Hypertension, Myocardial Infarction (SD) Additional Past Medical History / Comment(s): SD 2019. kidney stones. She also has hiatal hernia, overactive bladder, osteopenia and history of a aortic aneurysm status post graft repair. 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 Last Myocardial Infarction Date:: 05/19/19 History of Any Multi-Drug Resistant Organisms: None Reported Past Surgical History: Heart Catheterization With Stent Additional Past Surgical History / Comment(s): aaa repair 01/29/14, kidney stone surgery, colonoscopy in 2014, 2 heart stents 05/19/19 1 heart stent 05/27/19. Colonoscopy 2014(next after 7-10yr) Past Anesthesia/Blood Transfusion Reactions: No Reported Reaction, Family History of Problems w/ Anesthesia Additional Past Anesthesia/Blood Transfusion Reaction / Comment(s): "Mom, even if she had a small procedure she would vomit after anesthesia, she would get very sick to her stomach" Date of Last Stent Placement:: 05/27/19 Past Psychological History: No Psychological Hx Reported Smoking Status: Current every day smoker (Down to 4 cigarettes per day.) Past Alcohol Use History: Rare (4 per year) Past Drug Use History: None Reported Additional History: She has been since 1995 and 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 - Past Family History Father Family Medical History: Diabetes Mellitus Additional Family Medical History / Comment(s): Father had heart disease Sister(s) Family Medical History: Diabetes Mellitus Mother Additional Family Medical History / Comment(s): AAA Medications and Allergies Home Medications Medication Instructions Recorded Confirmed Type Zolpidem [Ambien] 10 mg PO HS PRN 04/16/14 05/11/20 History Linaclotide [Linzess] 290 mcg PO DIRECTED 04/01/19 05/11/20 History Omeprazole 40 mg PO DAILY 04/01/19 05/11/20 History Polyethylene Glycol 3350 [Miralax] 17 gm PO DAILY PRN 04/01/19 05/11/20 History Acetaminophen Tab [Tylenol] 650 mg PO Q6HR PRN tab 05/21/19 05/11/20 Rx Metoprolol Tartrate [Lopressor] 25 mg PO BID #60 tab 05/21/19 05/11/20 Rx Nitroglycerin Sl Tabs [Nitrostat] 0.4 mg SUBLINGUAL ONCE PRN #50 tab 05/21/19 05/11/20 Rx Ticagrelor [Brilinta] 90 mg PO BID #30 tab 05/21/19 05/11/20 Rx lisinopriL [Zestril] 5 mg PO DAILY #30 tab 05/21/19 05/11/20 Rx Aspirin 81 mg PO DAILY #30 chewable 05/28/19 06/19/19 Rx Atorvastatin [Lipitor] 80 mg PO HS 06/16/19 06/19/19 History Allergies Allergy/AdvReac Type Severity Reaction Status Date / Time adhesive tape Allergy Rash/Hives Verified 06/16/19 10:53 amoxicillin [Amoxicillin] Allergy Rash/Hives Verified 06/16/19 10:53 latex Allergy Rash/Hives Verified 06/16/19 10:53 Exam Vital Signs Temp Pulse Resp BP Pulse Ox 05/11/20 11:23 98.3 F 60 16 148/86 95 Intake and Output 05/10/20 05/11/20 05/11/20 22:59 06:59 14:59 Other: Weight 81.193 kg Height 5 feet 3 inches, weight 179 pounds, BMI 31.7. This is a well-developed well-nourished white female who is alert and oriented times 3 in no acute distress. HEENT: Within normal limits. NECK: Supple without mass or thyromegaly. CHEST AND LUNGS: Clear to auscultation. HEART: Regular rate and rhythm. BREASTS: Are without mass or discharge. AXILLARY EXAM: Negative for adenopathy. BACK: Negative for CVA tenderness. ABDOMEN: Soft, nontender, without palpable masses. PELVIC EXAM: Normal external genitalia with mild atrophy. Cervix and vagina appear normal with mild atrophy. There is no unusual discharge. There is no evidence of prolapse. The uterus is midposition, nongravid size and nontender. There are no palpable adnexal masses or tenderness. RECTAL EXAM: There is an external hemorrhoid which is noninflamed and nontender. Rectovaginal exam is negative for mass or tenderness and is negative for occult blood. EXTREMITIES: Nontender. There are bruises noted on her posterior aspect of her upper right arm and on her thigh. The patient states she has been bruising very easily while on a blood thinner. She denies any significant trauma. IMPRESSION: 1. 60-year-old menopausal female with normal gynecologic exam. 2. History of osteopenia. PLAN: 1. Pap smear was deferred since she had a normal one on 04/01/2019. 2. Self breast awareness was discussed with the patient. 3. Screening mammogram will be done today. 4. Osteoporosis prevention was discussed. I have stressed the importance of adequate calcium, vitamin D and regular exercise. Recommended amounts of calcium and vitamin D were also discussed. We will plan on repeating bone density test in 1-2 years since her last one was done 1 year ago. I have also recommended that she try to quit smoking altogether and many reasons were given for this. 5. She was advised to return in one year for her annual well woman exam.
--- NOTE | 2020-05-12 12:03 | MM ---
Reason for exam: screening (asymptomatic). Last mammogram was performed 1 year and 1 month ago. History: Patient is postmenopausal and had first child at age 37. Taking estrogen for 1 year beginning at age 44. Taking progesterone for 1 year beginning at age 44. Physical Findings: A clinical breast exam by your physician is recommended on an annual basis and results should be correlated with mammographic findings. MG Screening Mammo w CAD Bilateral CC and MLO view(s) were taken. Prior study comparison: April 01, 2019, bilateral MG screening mammo w CAD. June 06, 2017, bilateral MG screening mammo w CAD. There are scattered fibroglandular densities. No significant changes when compared with prior studies. ASSESSMENT: Benign, BI-RAD 2 RECOMMENDATION: Routine screening mammogram of both breasts in 1 year.
== END | disposition home or self-care (01) ==
LOC: WWCWWP 10:57
PROVIDERS: ATTEND Obstetrics & Gynecology
DX: Z12.31 Encounter for screening mammogram for malignant neoplasm of breast (principal)
CPT/HCPCS: 77067

== ENCOUNTER → 2021-04-13 | Outpatient (CLI) | payer OTHER | END | disposition home or self-care (01) | LOC: LABWHC1 14:05 | PROVIDERS: ATTEND Emergency Medicine | DX: Z20.822 Contact with and (suspected) exposure to COVID-19 (principal) | CPT/HCPCS: 87635; C9803 ==

== ENCOUNTER 2021-07-25 11:06 | Emergency (ER) | payer OTHER ==
[2021-07-25 11:12] VITALS: RESP 18; TEMP 96.9
[2021-07-25] MEDS ORDERED: SODIUM CHLORIDE 0.9% 1,000 ML IV STA (11:13)
--- NOTE | 2021-07-25 11:16 | ED ---
General Adult HPI - General Source: patient Mode of arrival: wheelchair Limitations: no limitations <Chrsi Monroe P - Last Filed: 07/25/21 11:13> - General Source: patient, RN notes reviewed, old records reviewed Limitations: no limitations - History of Present Illness -: hour(s) (6) Radiation: non-radiation Severity scale (1-10): 0 Consistency: now resolved Associated Symptoms: denies other symptoms Treatments Prior to Arrival: none <Naeem Meza - Last Filed: 07/25/21 23:14> - General Stated complaint: Passed out Time Seen by Provider: 07/25/21 16:00 - History of Present Illness Initial comments: Patient was seen in the triage [id number] for advanced triage purposes: 61 year old female with a past medical history of HI, hyperlipidemia, hypertension presents to the emergency room for a chief complaint of lightheadedness. Patient has had lightheadedness since at work today. Patient suddenly started to feel a room was spinning and got lightheaded. She states she felt like she was going to pass out and had to sit down. Patient still feels lightheaded. Denies any chest pain or shortness of breath associated with this.Patient has no other complaints at this time including shortness of breath, chest pain, abdominal pain, nausea or vomiting, headache, or visual changes. (Chris Monroe) This is a well-appearing 61-year-old female that presents to the emergency room with complaints of near syncope today while at work. 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 She sat on the ground but did not pass out. She denies any chest pain or shortness of breath. She states that she did feel nauseated but no vomiting. She has been complaining of constipation. She has had poor oral intake today. Patient believes that this is related to decreased oral intake and wearing masks. She states that she's had other episodes like this over the past month but not as severe as today. She does have history of hypertension, HI in 2019 with cardiac stents 4, and aortic aneurysm repair in 2014. She is smoking 4 cigarettes a day. (Naeem Meza) - Related Data Home Medications Medication Instructions Recorded Confirmed Zolpidem [Ambien] 10 mg PO HS PRN 04/16/14 05/11/20 Linaclotide [Linzess] 290 mcg PO DIRECTED 04/01/19 05/11/20 Omeprazole 40 mg PO DAILY 04/01/19 05/11/20 Polyethylene Glycol 3350 [Miralax] 17 gm PO DAILY PRN 04/01/19 05/11/20 Atorvastatin [Lipitor] 80 mg PO HS 06/16/19 06/19/19 Previous Rx's Medication Instructions Recorded Acetaminophen Tab [Tylenol] 650 mg PO Q6HR PRN tab 05/21/19 Metoprolol Tartrate [Lopressor] 25 mg PO BID #60 tab 05/21/19 Nitroglycerin Sl Tabs [Nitrostat] 0.4 mg SUBLINGUAL ONCE PRN #50 tab 05/21/19 Ticagrelor [Brilinta] 90 mg PO BID #30 tab 05/21/19 lisinopriL [Zestril] 5 mg PO DAILY #30 tab 05/21/19 Aspirin 81 mg PO DAILY #30 chewable 05/28/19 Allergies Allergy/AdvReac Type Severity Reaction Status Date / Time adhesive tape Allergy Rash/Hives Verified 07/25/21 11:12 amoxicillin [Amoxicillin] Allergy Rash/Hives Verified 07/25/21 11:12 latex Allergy Rash/Hives Verified 07/25/21 11:12 Review of Systems ROS Other: All systems not noted in ROS Statement are negative. <Chris Monroe - Last Filed: 07/25/21 11:13> ROS Other: All systems not noted in ROS Statement are negative. <Naeem Meza - Last Filed: 07/25/21 23:14> ROS Statement: Those systems with pertinent positive or pertinent negative responses have been documented in the HPI. Past Medical History Past Medical History: Hyperlipidemia, Hypertension, Myocardial Infarction (HI) Additional Past Medical History / Comment(s): HI 2019. kidney stones. She also has hiatal hernia, overactive bladder, osteopenia and history of a aortic aneurysm status post graft repair. 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 Last Myocardial Infarction Date:: 05/19/19 History of Any Multi-Drug Resistant Organisms: None Reported Past Surgical History: Heart Catheterization With Stent Additional Past Surgical History / Comment(s): aaa repair 01/29/14, kidney stone surgery, colonoscopy in 2014, 2 heart stents 05/19/19 1 heart stent 05/27/19. Colonoscopy 2014(next after 7-10yr) Past Anesthesia/Blood Transfusion Reactions: No Reported Reaction, Family History of Problems w/ Anesthesia Additional Past Anesthesia/Blood Transfusion Reaction / Comment(s): "Mom, even if she had a small procedure she would vomit after anesthesia, she would get very sick to her stomach" Date of Last Stent Placement:: 05/27/19 Past Psychological History: No Psychological Hx Reported Smoking Status: Current every day smoker Past Alcohol Use History: Rare Past Drug Use History: None Reported - Past Family History Father Family Medical History: Diabetes Mellitus Additional Family Medical History / Comment(s): Father had heart disease Sister(s) Family Medical History: Diabetes Mellitus Mother Additional Family Medical History / Comment(s): AAA <Chris Monroe P - Last Filed: 07/25/21 11:13> General Exam Limitations: no limitations General appearance: alert, in no apparent distress Head exam: Present: atraumatic Eye exam: Present: normal appearance, PERRL, EOMI. Absent: scleral icterus, conjunctival injection ENT exam: Present: mucous membranes moist Neck exam: Present: normal inspection, full ROM Respiratory exam: Absent: respiratory distress <Chris Monroe P - Last Filed: 07/25/21 11:13> Limitations: no limitations General appearance: alert, in no apparent distress Eye exam: Present: normal appearance, EOMI, other (left eye black nevus chronic) ENT exam: Present: normal exam, mucous membranes moist (sticky) Neck exam: Present: normal inspection, full ROM. Absent: tenderness, meningismus, lymphadenopathy, thyromegaly Respiratory exam: Present: normal lung sounds bilaterally. Absent: respiratory distress, wheezes, rales, rhonchi, stridor Cardiovascular Exam: Present: regular rate, normal rhythm, normal heart sounds. Absent: systolic murmur, diastolic murmur, rubs, gallop, clicks GI/Abdominal exam: Present: soft, normal bowel sounds. Absent: distended, tenderness, guarding, rebound, rigid Extremities exam: Present: normal inspection, full ROM, normal capillary refill. Absent: tenderness, pedal edema, joint swelling, calf tenderness Back exam: Absent: tenderness, CVA tenderness (R), CVA tenderness (L) Neurological exam: Present: alert, oriented X3, normal gait Psychiatric exam: Present: normal affect, normal mood Skin exam: Present: warm, dry, intact, normal color. 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] Pulse Rate [ Standing Metal Worker ] Pulse Rate [ 76 Supine Metal Worker] Respiratory 18 18 18 Rate Blood Pressure 136/81 Blood Pressure 148/87 [Right Arm Sitting] Blood Pressure [Right Arm Standing] Blood Pressure 156/72 [Right Arm Supine] O2 Sat by Pulse 97 95 95 Oximetry 07/25/21 17:02 Temperature Pulse Rate Pulse Rate [ Sitting Metal Worker] Pulse Rate [ 91 Standing Metal Worker ] Pulse Rate [ Supine Metal Worker] Respiratory 18 Rate Blood Pressure Blood Pressure [Right Arm Sitting] Blood Pressure 147/87 [Right Arm Standing] Blood Pressure [Right Arm Supine] O2 Sat by Pulse 96 Oximetry EKG Findings - EKG Results: EKG: sinus rhythm (Ventricular rate of 66, MS interval of 0.158, QRS 0.74, QTC 0.457) <Naeem Meza - Last Filed: 07/25/21 23:14> Medical Decision Making - Lab Data Result diagrams: 07/25/21 11:30 07/25/21 11:30 <Naeem Meza - Last Filed: 07/25/21 23:14> - Medical Decision Making Chest x-ray shows no acute pulmonary process. Hemoglobin and hematocrit are stable there is no evidence of leukocytosis. Her electrolytes are unremarkable blood glucose is 138. She had 2 troponins both negative and 3 hours apart. She has had no dizziness, chest pain or difficulty breathing while in the emergency room her labs are within normal limits. She has been ambulatory with no complaints of dizziness. Due to the patient's significant cardiac history I did recommend her admitted to the hospital. She is requesting to go home and follow-up with her own doctor. I did express to the patient the importance of returning to the emergency room if any new or worsening symptoms including dizziness, syncope, chest pain or difficulty in breathing. She is agreeable to returning. I did discuss this case with Dr. Mark. (Naeem Meza) - Lab Data Lab Results 07/25/21 07/25/21 07/25/21 Range/Units 11:29 11:30 11:30 WBC 11.1 H (3.8-10.6) k/uL RBC 4.83 (3.80-5.40) m/uL Hgb 15.2 (11.4-16.0) gm/dL Hct 45.1 (34.0-46.0) % MCV 93.3 (80.0-100.0) fL MCH 31.4 (25.0-35.0) pg MCHC 33.6 (31.0-37.0) g/dL RDW 14.3 (11.5-15.5) % Plt Count 281 (150-450) k/uL MPV 8.6 Neutrophils % 59 % Lymphocytes % 31 % Monocytes % 5 % Eosinophils % 1 % Basophils % 1 % Neutrophils # 6.5 (1.3-7.7) k/uL Lymphocytes # 3.5 (1.0-4.8) k/uL Monocytes # 0.6 (0-1.0) k/uL Eosinophils # 0.1 (0-0.7) k/uL Basophils # 0.1 (0-0.2) k/uL PT 10.0 (9.0-12.0) sec INR 0.9 (<1.2) APTT 20.6 L (22.0-30.0) sec Sodium (137-145) mmol/L Potassium (3.5-5.1) mmol/L Chloride (98-107) mmol/L Carbon Dioxide (22-30) mmol/L Anion Gap mmol/L BUN (7-17) mg/dL Creatinine (0.52-1.04) mg/dL Est GFR (CKD-EPI)AfAm (>60 ml/min/1.73 sqM) Est GFR (CKD-EPI)NonAf (>60 ml/min/1.73 sqM) Glucose (74-99) mg/dL POC Glucose (mg/dL) 129 H (75-99) mg/dL POC Glu Associate Professor Of Archaeology ID Leanne Gifford Calcium (8.4-10.2) mg/dL Magnesium (1.6-2.3) mg/dL Total Bilirubin (0.2-1.3) mg/dL AST (14-36) U/L ALT (4-34) U/L Alkaline Phosphatase (38-126) U/L Troponin I (0.000-0.034) ng/mL NT-Pro-B Natriuret Pep pg/mL Total Protein (6.3-8.2) g/dL Albumin (3.5-5.0) g/dL 07/25/21 07/25/21 07/25/21 Range/Units 11:30 11:30 11:30 WBC (3.8-10.6) k/uL RBC (3.80-5.40) m/uL Hgb (11.4-16.0) gm/dL Hct (34.0-46.0) % MCV (80.0-100.0) fL MCH (25.0-35.0) pg MCHC (31.0-37.0) g/dL RDW (11.5-15.5) % Plt Count (150-450) k/uL MPV Neutrophils % % Lymphocytes % % Monocytes % % Eosinophils % % Basophils % % Neutrophils # (1.3-7.7) k/uL Lymphocytes # (1.0-4.8) k/uL Monocytes # (0-1.0) k/uL Eosinophils # (0-0.7) k/uL Basophils # (0-0.2) k/uL PT (9.0-12.0) sec INR (<1.2) APTT (22.0-30.0) sec Sodium 135 L (137-145) mmol/L Potassium 4.5 (3.5-5.1) mmol/L Chloride 104 (98-107) mmol/L Carbon Dioxide 23 (22-30) mmol/L Anion Gap 8 mmol/L BUN 15 (7-17) mg/dL Creatinine 0.92 (0.52-1.04) mg/dL Est GFR (CKD-EPI)AfAm 79 (>60 ml/min/1.73 sqM) Est GFR (CKD-EPI)NonAf 68 (>60 ml/min/1.73 sqM) Glucose 138 H (74-99) mg/dL POC Glucose (mg/dL) (75-99) mg/dL POC Glu Associate Professor Of Archaeology ID Calcium 9.8 (8.4-10.2) mg/dL Magnesium 1.8 (1.6-2.3) mg/dL Total Bilirubin 0.4 (0.2-1.3) mg/dL AST 28 (14-36) U/L ALT 24 (4-34) U/L Alkaline Phosphatase 99 (38-126) U/L Troponin I <0.012 (0.000-0.034) ng/mL NT-Pro-B Natriuret Pep 265 pg/mL Total Protein 6.9 (6.3-8.2) g/dL Albumin 4.0 (3.5-5.0) g/dL 07/25/21 Range/Units 16:39 WBC (3.8-10.6) k/uL RBC (3.80-5.40) m/uL Hgb (11.4-16.0) gm/dL Hct (34.0-46.0) % MCV (80.0-100.0) fL MCH (25.0-35.0) pg MCHC (31.0-37.0) g/dL RDW (11.5-15.5) % Plt Count (150-450) k/uL MPV Neutrophils % % Lymphocytes % % Monocytes % % Eosinophils % % Basophils % % Neutrophils # (1.3-7.7) k/uL Lymphocytes # (1.0-4.8) k/uL Monocytes # (0-1.0) k/uL Eosinophils # (0-0.7) k/uL Basophils # (0-0.2) k/uL PT (9.0-12.0) sec INR (<1.2) APTT (22.0-30.0) sec Sodium (137-145) mmol/L Potassium (3.5-5.1) mmol/L Chloride (98-107) mmol/L Carbon Dioxide (22-30) mmol/L Anion Gap mmol/L BUN (7-17) mg/dL Creatinine (0.52-1.04) mg/dL Est GFR (CKD-EPI)AfAm (>60 ml/min/1.73 sqM) Est GFR (CKD-EPI)NonAf (>60 ml/min/1.73 sqM) Glucose (74-99) mg/dL POC Glucose (mg/dL) (75-99) mg/dL POC Glu Associate Professor Of Archaeology ID Calcium (8.4-10.2) mg/dL Magnesium (1.6-2.3) mg/dL Total Bilirubin (0.2-1.3) mg/dL AST (14-36) U/L ALT (4-34) U/L Alkaline Phosphatase (38-126) U/L Troponin I <0.012 (0.000-0.034) ng/mL NT-Pro-B Natriuret Pep pg/mL Total Protein (6.3-8.2) g/dL Albumin (3.5-5.0) g/dL Disposition <Chris Monroe - Last Filed: 07/25/21 11:13> Is patient prescribed a controlled substance at d/c from ED?: No Time of Disposition: 17:40 <Naeem Meza - Last Filed: 07/25/21 23:14> Clinical Impression: Near syncope, Dizziness Disposition: HOME SELF-CARE Condition: Good Instructions (If sedation given, give patient instructions): Near Syncope (ED), Dizziness (ED) Additional Instructions: Return to the emergency room with any new or worsening symptoms including chest pain, difficulty breathing or worsening dizziness. Increase your fluid intake. 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 Referrals: Randell Shay MD [Primary Care Provider] - 1-2 days
[2021-07-25 11:35] LABS: Glucose,Whole Blood 129 mg/dL (75-99)
[2021-07-25 11:56] LABS: Basophils # (A) 0.1 k/uL (0-0.2); Basophils % (A) 1 %; Eosinophils # (A) 0.1 k/uL (0-0.7); Eosinophils % (A) 1 %; HCT 45.1 % (34.0-46.0); HGB 15.2 gm/dL (11.4-16.0); Lymphocytes # (A) 3.5 k/uL (1.0-4.8); Lymphocytes % (A) 31 %; MCH 31.4 pg (25.0-35.0); MCHC 33.6 g/dL (31.0-37.0); MCV 93.3 fL (80.0-100.0); Mean Platelet Volume 8.6; Monocytes # (A) 0.6 k/uL (0-1.0); Monocytes % (A) 5 %; Neutrophils # (A) 6.5 k/uL (1.3-7.7); Neutrophils % (A) 59 %; Platelet Count 281 k/uL (150-450); RBC 4.83 m/uL (3.80-5.40); RDW 14.3 % (11.5-15.5); WBC 11.1 k/uL (3.8-10.6)
[2021-07-25 12:00] LABS: Calcium 9.8 mg/dL (8.4-10.2); Magnesium 1.8 mg/dL (1.6-2.3); Potassium 4.5 mmol/L (3.5-5.1); Total Bilirubin 0.4 mg/dL (0.2-1.3); Total Protein 6.9 g/dL (6.3-8.2)
[2021-07-25 12:03] LABS: INR 0.9 (<1.2)
[2021-07-25 12:06] LABS: Partial Thromboplastin Time 20.6 sec (22.0-30.0)
--- NOTE | 2021-07-25 13:20 | XR ---
EXAMINATION TYPE: XR chest 2V DATE OF EXAM: 07/25/2021 COMPARISON: 05/19/2019 INDICATION: Chest pain and nausea TECHNIQUE: Frontal and lateral views of the chest are obtained. FINDINGS: The heart size is normal. The pulmonary vasculature is normal. The lungs are clear. IMPRESSION: 1. No acute pulmonary process.
[2021-07-25 22:53] VITALS: BP 147/87; PULSE 91
== END 2021-07-25 17:54 | disposition home or self-care (01) ==
LOC: EC 11:06
DX: R42 Dizziness and giddiness (principal); R55 Syncope and collapse; I10 Essential (primary) hypertension; I25.2 Old myocardial infarction; E78.5 Hyperlipidemia, unspecified; F17.210 Nicotine dependence, cigarettes, uncomplicated; Z79.82 Long term (current) use of aspirin; Z79.899 Other long term (current) drug therapy; Z83.3 Family history of diabetes mellitus; Z82.49 Family history of ischemic heart disease and other diseases of the circulatory system; Z88.0 Allergy status to penicillin; Z95.5 Presence of coronary angioplasty implant and graft
CPT/HCPCS: 36415; 71046; 80053; 83735; 83880; 84484; 85025; 85610; 85730; 93005; 99284

== ENCOUNTER 2021-09-27 10:44 | Day surgery (SDC) | payer OTHER ==
[2021-09-21 14:48] VITALS: BMI 32.5
[~2021-09-27 10:44] MED LIST changes: -ALPRAZolam 0.25 MG TAB PO PRN; -ALPRAZolam 0.5 MG TAB PO PRN; -ASPIRIN 325 MG TAB PO STA; -ATORVASTATIN 80 MG TAB PO STA; -NITROGLYCERIN SL TABS 0.4 MG TAB SUBLINGUAL PRN; +SODIUM CHLORIDE 0.9% 1,000 ML IV SCH; -SODIUM CHLORIDE 0.9% 1,000 ML in EMPTY BAG 1 BAG IV ONE
[2021-09-27] MEDS ORDERED: SODIUM CHLORIDE 0.9% 500 ML 500 ML IV ONE (11:01)
[2021-09-27 11:13] VITALS: RESP 16; TEMP 97.6
[2021-09-27 13:46] VITALS: BP 176/72; PULSE 62
--- NOTE | 2021-09-27 16:15 | P.EPPROC ---
- EP Procedure Note Electrophysiology Procedure Note: Diagnosis Loss of consciousness Baseline twelve-lead EKG Sinus rhythm normal TN narrow QRS normal ST segments Normal QT interval No delta waves no epsilon waves, LVH noted Tilt table test for protocol Baseline blood pressure 172/86 millimeters his mercury Baseline heart rate 50 beats a minute Patient was tilted upright at an angle of 70 per protocol There was a progressive slow decline in blood pressure) pressure recorded 123/70 mmHg heart rate in the 60s No syncope noted Impression Twelve-lead EKG shows left hypertrophy Elevated Baseline blood pressure with evidence of a gradual decline with upright tilting, without any increase in heart rate Dysautonomic response, asymptomatic
== END 2021-09-27 13:46 | disposition home or self-care (01) ==
LOC: CATHEP 10:44
PROVIDERS: ATTEND Internal Medicine Clinical Cardiac Electrophysiology
DX: R55 Syncope and collapse (principal); I25.5 Ischemic cardiomyopathy; I10 Essential (primary) hypertension; Z20.822 Contact with and (suspected) exposure to COVID-19; F17.200 Nicotine dependence, unspecified, uncomplicated; Z95.5 Presence of coronary angioplasty implant and graft; Z79.899 Other long term (current) drug therapy; Z82.49 Family history of ischemic heart disease and other diseases of the circulatory system; Z88.0 Allergy status to penicillin
CPT/HCPCS: 87635; 93660

== ENCOUNTER → 2023-12-01 | Outpatient (CLI) | payer MEDICAID ==
[2023-12-01 14:05] LABS: ALT 17 U/L (8-44); AST 17 U/L (13-35); Chol/HDL Ratio 2.97 Ratio; LDL Cholesterol,Calculated 81.3 mg/dL (0.0-131.0); VLDL Calculation 18.88 mg/dL (5.00-40.00)
== END | disposition home or self-care (01) ==
LOC: LABWHC1 08:22
PROVIDERS: ATTEND Internal Medicine Interventional Cardiology
DX: E78.2 Mixed hyperlipidemia (principal)
CPT/HCPCS: 36415; 80061; 84450; 84460